=== PATIENT | female | born 1965 | race Caucasian/White ===

== ENCOUNTER → 2019-07-04 | Outpatient (CLI) | payer OTHER | END | disposition home or self-care (01) | LOC: RAD 10:18 | DX: S22.060A Wedge compression fracture of T7-T8 vertebra, initial encounter for closed fracture (principal); S32.030A Wedge compression fracture of third lumbar vertebra, initial encounter for closed fracture; X58.XXXA Exposure to other specified factors, initial encounter; Y93.89 Activity, other specified; Y92.89 Other specified places as the place of occurrence of the external cause; Y99.8 Other external cause status ==

== ENCOUNTER 2019-08-26 01:48 | Inpatient (IN) | payer OTHER ==
[2019-08-26] VITALS (8 sets, daily range): BP systolic 115–146; BP diastolic 56–98
[~2019-08-26] VITALS: Ht 167.6 cm; Wt 58.2 kg
[2019-08-26 02:16] LABS: BASO # 0.1 10*3/uL (0.0-0.1); BASO % 1.2 % (0.0-1.0); EOS # 0.4 10*3/uL (0.0-0.4); EOS % 8.8 % (1.0-4.0); HEMATOCRIT 37.2 % (37.0-47.0); HEMOGLOBIN 12.1 g/dl (12.0-16.0); LYMPH % 22.3 % (27.0-41.0); MEAN CELL VOLUME 96.4 fl (81.0-99.0); MEAN CORPUSCULAR HGB 31.3 pg (27.0-31.0); MEAN CORPUSCULAR HGB CONC 32.5 g/dl (33.0-37.0); MEAN PLATELET VOLUME 9.5 fl (9.6-12.3); MONO # 0.4 10*3/uL (0.1-1.0); MONO % 9.5 % (3.0-9.0); NEUT # 2.5 10*3/uL (2.3-7.9); PLATELET COUNT AUTOMATED 184 10*3/uL (130-400); RED BLOOD COUNT 3.86 10*6/uL (4.10-5.10); RED CELL DISTRI WIDTH 15.4 % (0-14.5); WHITE BLOOD COUNT 4.3 10*3/uL (4.8-10.8)
[2019-08-26 02:31] LABS: ALBUMIN 3.6 gm/dl (3.1-4.5); ALKALINE PHOSPHATASE 137 U/L (45-117); BUN 10 mg/dl (7-24); CHLORIDE 101 mmol/L (98-107); CREATININE 0.83 mg/dL (0.55-1.02); POTASSIUM 4.3 mmol/L (3.5-5.1); SGOT/AST 95 IU/L (3-35); SGPT/ALT 41 U/L (12-78); SODIUM 135 mmol/L (136-145); TOTAL PROTEIN 7.7 gm/dL (6.4-8.2)
[2019-08-26 02:41] LABS: ACETAMINOPHEN (TYLENOL) < 5.0 ug/ml (10-30); ETHYL ALCOHOL < 3.0 mg/dl (<3)
--- NOTE | 2019-08-26 03:15 | NUR ---
PT AMBULATORY TO BATHROOM SHE REMAINS CONFUSED AT THIS TIME SHE IS COOPERATIVE SHE REFUSES TO PUT ON A GOWN STATES SHE IS COLD WARM BLANKETS GIVEN FOR COMFORT. SHONDA ENCINAS RN.
[2019-08-26 03:19] LABS: BILIRUBIN NEGATIVE (NEGATIVE); BLOOD TRACE-INTACT (NEGATIVE); CLARITY SL CLOUDY (CLEAR); COLOR YELLOW (YELLOW); GLUCOSE NEGATIVE (NEGATIVE); KETONE 1+ (NEGATIVE); LEUKO ESTERASE NEGATIVE (NEGATIVE); NITRITE POSITIVE (NEGATIVE)
[2019-08-26 03:29] LABS: URINE AMPHETAMINES > 1000 (1000ng/ml); URINE BARBITURATES < 200 (200ng/ml); URINE BENZODIAZEPINES < 200 (200ng/ml); URINE CANNABINOIDS (THC) < 50 (50ng/ml); URINE COCAINE < 300 (300ng/ml); URINE METHADONE < 300 (300ng/ml); URINE OPIATES > 300 (300ng/ml)
[2019-08-26 03:31] LABS: URINE PHENCYCLIDINE < 25 (25ng/ml)
[2019-08-26 03:33] LABS: BACTERIA 4+
--- NOTE | 2019-08-26 04:39 | NUR ---
PT SLEEPING AROUSES EASILY . PT IS AWARE SHE IS IN THE HOSPITAL. I ASK THAT SHE BE PLACED IN A GOWN FOR ADM AND THE PATIENT REFUSES TO PUT ON A GOWN. SHONDA ENCINAS RN.
--- NOTE | 2019-08-26 09:00 | NUR ---
Time: 899 A 54 year old admitted to 5E under services of CARMELO HOFF DO. Pt. arrived via WHEELCHAIR from ER ER. Chief complaint: PT STATES "IM HERE FOR A UTI." DIAGNOSIS ENCEPHALOPATHY. SEE ADM ASSESSMENT. AARON PEACOCK SPNRCC RISHI CALDERON
--- NOTE | 2019-08-26 13:02 | NUR ---
NORCO 5/325 TAB PO FOR LOWER BACK PAIN DUE TO OSTEO. PT RATED PAIN "8/10". WILL CONTINUE TO ASSESS. AARON PEACOCK SPHUMBERTOCC
[2019-08-26] MEDS ORDERED: NORCO 5-325 TA1 EACH PO (13:09)
[2019-08-26] MEDS ORDERED: XIFAXAN550 MG PO (13:09)
[2019-08-26] MEDS ORDERED: OMEPRAZOLE20 M2 PO (13:10)
--- NOTE | 2019-08-26 14:20 | NUR ---
OFFICE STAFF WAS NOTIFIED OF BEHAVIORAL HEALTH CONSULT CONSULT. RESPONSE OF NOTIFICATION WAS WE ALREADY HAVE THE CONSULT.. MARIEL MALONEY
--- NOTE | 2019-08-26 18:04 | NUR ---
C/O PAIN TO BACK OF 04/23. NORCO GIVEN AT THIS TIME REQUESTED. WILL CONT TO MONITOR. CALL LIGHT IN REACH.
--- NOTE | 2019-08-26 22:10 | NUR ---
MEDICATED WITH NORCO FOR C/O GENERALIZED DISCOMFORT. HEP LOCK INTACT TO LEFT WRIST. PT. STATES THAT SHE IS TRYING TO CALL DIFFERENT PEOPLE ON THE PHONE TO SEE IF SOMEONE WILL LET HER LIVE WITH THEM DUE TO HER BEING HOMELESS. CALL LIGHT REMAINS WITHIN REACH. NO DISTRESS NOR HALLUCINATIONS NOTED. PT. COOPERATIVE.
--- NOTE | 2019-08-26 23:00 | NUR ---
ASSUMED CARE FOR THIS PT AT THIS TIME. PT RESTING QUIETLY IN BED. CALL LIGHT IN REACH.
[2019-08-27] VITALS: BP 125/74
--- NOTE | 2019-08-27 02:09 | NUR ---
PT MEDICATED W/NORCO FOR C/O BACK PAIN 04/23. PT RESTING QUIETLY IN BED. CALL LIGHT IN REACH.
--- NOTE | 2019-08-27 02:13 | NUR ---
PT C/O ITCHING D/T HEART MONITOR. DR. SHEFFIELD NOTIFIED. T.O. RCVD FOR BENADRYL 25MG PO X1 NOW.
--- NOTE | 2019-08-27 06:20 | NUR ---
PT MEDICATED W/NORCO FOR C/O BACK PAIN 03/23.
[2019-08-27 06:46] LABS: BASO # 0.1 10*3/uL (0.0-0.1); BASO % 1.1 % (0.0-1.0); EOS # 0.1 10*3/uL (0.0-0.4); EOS % 1.1 % (1.0-4.0); HEMATOCRIT 33.4 % (37.0-47.0); HEMOGLOBIN 10.8 g/dl (12.0-16.0); LYMPH # 1.9 10*3/uL (1.3-4.4); LYMPH % 35.6 % (27.0-41.0); MEAN CELL VOLUME 96.3 fl (81.0-99.0); MEAN CORPUSCULAR HGB 31.1 pg (27.0-31.0); MEAN CORPUSCULAR HGB CONC 32.3 g/dl (33.0-37.0); MEAN PLATELET VOLUME 9.7 fl (9.6-12.3); MONO # 0.5 10*3/uL (0.1-1.0); MONO % 8.6 % (3.0-9.0); NEUT # 2.8 10*3/uL (2.3-7.9); NEUT % 53.4 % (47.0-73.0); PLATELET COUNT AUTOMATED 166 10*3/uL (130-400); RED BLOOD COUNT 3.47 10*6/uL (4.10-5.10); RED CELL DISTRI WIDTH 15.5 % (0-14.5); WHITE BLOOD COUNT 5.3 10*3/uL (4.8-10.8)
[2019-08-27 07:21] LABS: BUN 10 mg/dl (7-24); CHLORIDE 104 mmol/L (98-107); POTASSIUM 3.7 mmol/L (3.5-5.1); SODIUM 137 mmol/L (136-145)
[2019-08-27 07:27] LABS: INTERNATIONAL NORM RATIO 1.2 (2.0-3.5)
[2019-08-27 07:32] LABS: ALKALINE PHOSPHATASE 195 U/L (45-117); CHOLESTEROL 159 mg/dL (<200); CREATININE 0.72 mg/dL (0.55-1.02); HDL CHOLESTEROL 69 mg/dl (40-60); LDL CHOLESTEROL 81 mg/dL (9-159); SGOT/AST 76 IU/L (3-35); SGPT/ALT 37 U/L (12-78); TOTAL PROTEIN 6.5 gm/dL (6.4-8.2); TRIGLYCERIDES 45 mg/dl (<150); VLDL CHOLESTEROL 9 mg/dL (6-40)
[2019-08-27 08:00] VITALS: BP 180/80
[2019-08-27 08:14] LABS: VITAMIN D, 25-HYDROXY 66.1 ng/mL (30-100)
[2019-08-27 09:46] VITALS: BP 150/90
--- NOTE | 2019-08-27 10:30 | NUR ---
Auto Wheel Alignment Specialist in to talk to patient. Patient states lives at home alone with her family checking in on her. There are 0 steps in the home. Physician: Dr. Guzman Ceron [facility] Home health services: none Patient's level of ADLs: INDEPENDENT Patient has working utilities: yes DME: none Follow-up physician's appointment after d/c: will be made by the hospitalist nurse director upon discharge Does patient want to access PORTAL?: no Discharge plan discussed with patient. She is sitting on the edge of her bed without distress noted. She lives at home alone with her family checking in on her. She is independent in her ADLs and ambulation. Discussed home health care services and BHU. She is agreeable to BHU. She denies any home needs at this time. She states she is awaiting a call from her granddaughter to see if she can stay with them. She states her [id number] should be calling about noon. She states her mother will provide transportation on discharge. Awaiting BHU vs home. JOSE J VASQUEZ
--- NOTE | 2019-08-27 10:33 | NUR ---
OFFICE STAFF WAS NOTIFIED OF DR. TAYLOR CONSULT. RESPONSE OF NOTIFICATION WAS NOTIFIED BY DARIEN HEARD. PER DARIEN HEARD. MARIEL MALONEY
--- NOTE | 2019-08-27 11:15 | NUR ---
PHYSICAL THERAPY Attempted to see pt for wander presently in with medical doctors will follow Dunia Guerra PT
--- NOTE | 2019-08-27 11:30 | NUR ---
Occupational therapy orders received and chart reviewed. Patient was with medical assistants upon arrival. Will follow up. Deborah Johansen OTR/L
--- NOTE | 2019-08-27 12:10 | NUR ---
PHYSICAL THERAPY Attempted to see pt again this PM on the phone discussing her Medicaide/Medicare status will follow Dunia Guerra PT
--- NOTE | 2019-08-27 12:15 | NUR ---
Occupational therapy orders received and chart reviewed. Patient was on the phone discussing her medicare/medicaid. Will follow up. Deborah Johansen, OTR/L
--- NOTE | 2019-08-27 14:44 | NUR ---
Museum Informatics Specialist attempted to call mother, Meredith, at [phone] with no success. Was told it was a wrong number by the lady who answered the phone. Museum Informatics Specialist in to see patient. She states she is waiting for her [id number] to call. She should be calling about [phone]. She states she called [place] Medicaid and her insurance has now been reinstated. [facility] and that is correct, patient now has [place] Medicaid. Notified Anna, order planner, in [facility] for possible admission. Patient is willing to go to [facility] if they are able to take her. Nurse notified.
--- NOTE | 2019-08-27 14:56 | NUR ---
[facility] not able to take patient due to bed availability and nurse practitioner stating patient needs a dual diagnosis facility. mud jack nozzle worker notified.
--- NOTE | 2019-08-27 15:09 | NUR ---
MRI TECHNICIAN faxed referral to [facility] for review. -JESUS CastanedaW
[2019-08-27 16:00] VITALS: BP 117/55
--- NOTE | 2019-08-27 19:00 | NUR ---
ASSUMED CARE FOR THIS PT AT THIS TIME. PT SITTING IN BED WATCHING TV. CALL LIGHT IN REACH.
[2019-08-27 20:00] VITALS: BP 109/52
--- NOTE | 2019-08-27 20:19 | NUR ---
PT MEDICATED W/NORCO FOR C/O BACK PAIN 04/23. PT SITTING IN BED WATCHING TV. CALL LIGHT IN REACH.
--- NOTE | 2019-08-27 23:03 | NUR ---
24 HR chart check completed.
[2019-08-28 00:27] VITALS: BP 100/52
--- NOTE | 2019-08-28 00:51 | NUR ---
PT MEDICATED W/NORCO FOR C/O CHRONIC BACK PAIN 04/23. PT ENCOURAGED TO SLEEP.
--- NOTE | 2019-08-28 05:21 | NUR ---
PT SLEEPING, AWOKEN FOR MEDS. PT REQUESTING PAIN MEDICATION. MEDICATED W/NORCO.
[2019-08-28 07:02] LABS: BASO % 0.8 % (0.0-1.0); EOS # 0.1 10*3/uL (0.0-0.4); HEMATOCRIT 31.4 % (37.0-47.0); HEMOGLOBIN 10.2 g/dl (12.0-16.0); LYMPH # 1.6 10*3/uL (1.3-4.4); LYMPH % 31.8 % (27.0-41.0); MEAN CELL VOLUME 96.9 fl (81.0-99.0); MEAN CORPUSCULAR HGB 31.5 pg (27.0-31.0); MEAN CORPUSCULAR HGB CONC 32.5 g/dl (33.0-37.0); MEAN PLATELET VOLUME 9.6 fl (9.6-12.3); MONO # 0.5 10*3/uL (0.1-1.0); MONO % 10.5 % (3.0-9.0); NEUT # 2.8 10*3/uL (2.3-7.9); NEUT % 55.5 % (47.0-73.0); PLATELET COUNT AUTOMATED 145 10*3/uL (130-400); RED BLOOD COUNT 3.24 10*6/uL (4.10-5.10); RED CELL DISTRI WIDTH 15.6 % (0-14.5)
[2019-08-28 07:33] LABS: CHLORIDE 103 mmol/L (98-107); POTASSIUM 3.8 mmol/L (3.5-5.1); SODIUM 137 mmol/L (136-145)
[2019-08-28 07:39] LABS: BUN 11 mg/dl (7-24); CREATININE 0.86 mg/dL (0.55-1.02)
[2019-08-28 08:00] VITALS: BP 115/54
--- NOTE | 2019-08-28 08:00 | NUR ---
Patient resting quietly with no c/o discomfort. Respirations easy and regular. Vital signs stable. No overt distress. AAKASH SOLIS
--- NOTE | 2019-08-28 08:10 | NUR ---
DANILO returned call from [facility]. They are unable to accept the patient. They do not take her insurance. -DANILO Castaneda
--- NOTE | 2019-08-28 09:25 | NUR ---
PT MEDICATED WITH PO NORCO PER PRN ORDER FOR C/O BACK PAIN. CHRONIC PAIN PER PT. RATES PAIN 04/23. WILL MONITOR EFFECTIVENESS.
--- NOTE | 2019-08-28 10:40 | NUR ---
JUNIOR TAYLOR IN TO SEE PATIENT. NEW ORDERS ENTERED PER PHYSICIAN.
[2019-08-28 12:00] VITALS: BP 101/42
--- NOTE | 2019-08-28 13:26 | NUR ---
Late Note: COOK CANDY was notified by Director of [facility] that the patient was refusing to voluntarily sign in to their unit. COOK CANDY notified RN Hospitalist Coordinator Manuela. -DANILO Castaneda
--- NOTE | 2019-08-28 13:38 | NUR ---
PT MEDICATED WITH PO NORCO PER PRN ORDER FOR C/O BACK PAIN. CHRONIC PER PT. WILL MONITOR EFFECTIVENESS.
--- NOTE | 2019-08-28 14:00 | NUR ---
CALLED REGARDING DISCHARGE PLAN. PATIENT WILL EITHER GO HOME WITH HER MOM WHEN SHE COMES IN THIS EVENING OR WILL SIGN CONSENT TO GO TO [facility].
[2019-08-28] MEDS ORDERED: LISINOPRIL10 M1 PO (14:14)
[2019-08-28] MEDS ORDERED: MIRTAZAPINE15 M2 PO (14:14)
--- NOTE | 2019-08-28 14:34 | NUR ---
DANILO received call from Director of [facility] in regards to this [facility]. PRODUCTION ADMINISTRATOR spoke with BEVERLY Nelson. Per Leslie patient is waiting to speak with her mother this evening to make a decision on sigining into [facility]. Per BEVERLY Nelson, patient will either be discharged to [facility] or discharged to home. PRODUCTION ADMINISTRATOR reached out to Director of [facility] and explained this to him. -DANILO Castaneda
--- NOTE | 2019-08-28 14:45 | NUR ---
NORCO EFFECTIVE PER PT. WILL CONTINUE TO MONITOR.
[2019-08-28 16:00] VITALS: BP 104/41
--- NOTE | 2019-08-28 17:53 | NUR ---
PT MEDICATED WITH NORCO FOR C/O BACK PAIN AT THIS TIME; WILL MONITOR FOR EFFECTIVENESS.
--- NOTE | 2019-08-28 18:41 | NUR ---
NOTIFIED REGARDING PATIENT'S MOTHER NOT COMING IN [facility]. PATIENT INFORMED REGARDING 2 OPTIONS FOR DISCHARGE. PATIENT EITHER HAS TO SIGN INTO [facility] OR BE DISCHARGED HOME. PATIENT AWARE AND IS TRYING TO FIND A RIDE.
--- NOTE | 2019-08-28 18:53 | NUR ---
PATIENT AT THIS TIME STATES THAT SHE HAS A RIDE. SHE STATED SHE HAS TO BE OUT SOON. DR. DEWEY MADE AWARE. SHE STATED THEY WOULD GET THE DISCHARGE ORDER PUT IN SOON POSSIBLE.
--- NOTE | 2019-08-28 18:54 | NUR ---
PATIENT IV SITE AND HEART MONITOR REMOVED PER PT REQUEST
--- NOTE | 2019-08-28 19:13 | NUR ---
Discharge instructions reviewed with patient/family. Patient receptive and verbalizes understanding. Follow-up care arranged. Written instructions given to patient/family. AAKASH SOLIS.
== END 2019-08-28 19:13 | disposition home or self-care (01) | DRG 52 ==
LOC: ED 01:48 → 5E 06:30 → EDHOLD 06:30 → 5E 08:22
PROVIDERS: Emergency Medicine; Internal Medicine; Student in an Organized Health Care Education/Training Program; ADMIT Emergency Medicine
DX: G93.41 Metabolic encephalopathy (principal); N39.0 Urinary tract infection, site not specified; K74.60 Unspecified cirrhosis of liver; M81.0 Age-related osteoporosis without current pathological fracture; F19.10 Other psychoactive substance abuse, uncomplicated; F15.10 Other stimulant abuse, uncomplicated; R73.9 Hyperglycemia, unspecified; E87.1 Hypo-osmolality and hyponatremia; F17.210 Nicotine dependence, cigarettes, uncomplicated; B19.20 Unspecified viral hepatitis C without hepatic coma; G89.29 Other chronic pain; M54.9 Dorsalgia, unspecified; F32.9 Major depressive disorder, single episode, unspecified; F11.99 Opioid use, unspecified with unspecified opioid-induced disorder; Y90.9 Presence of alcohol in blood, level not specified; D70.9 Neutropenia, unspecified; F10.20 Alcohol dependence, uncomplicated; R31.9 Hematuria, unspecified; Z88.0 Allergy status to penicillin; Z91.040 Latex allergy status; Z79.899 Other long term (current) drug therapy; Z95.828 Presence of other vascular implants and grafts; Z81.1 Family history of alcohol abuse and dependence; Z81.8 Family history of other mental and behavioral disorders; Z82.49 Family history of ischemic heart disease and other diseases of the circulatory system; F41.9 Anxiety disorder, unspecified

== ENCOUNTER 2019-10-29 23:27 | Emergency (ER) | payer OTHER ==
[~2019-10-29] VITALS: Wt 58.5 kg
[~2019-10-29 23:27] MED LIST: LISINOPRIL10 M1 PO; MIRTAZAPINE15 M2 PO; NORCO 5-325 TA1 EACH PO; OMEPRAZOLE20 M2 PO; XIFAXAN550 MG PO
[2019-10-30 00:41] LABS: BASO # 0.1 10*3/uL (0.0-0.1); BASO % 2.2 % (0.0-1.0); EOS # 0.1 10*3/uL (0.0-0.4); EOS % 2.4 % (1.0-4.0); HEMATOCRIT 38.8 % (37.0-47.0); HEMOGLOBIN 12.3 g/dl (12.0-16.0); LYMPH # 1.9 10*3/uL (1.3-4.4); LYMPH % 45.5 % (27.0-41.0); MEAN CELL VOLUME 101.6 fl (81.0-99.0); MEAN CORPUSCULAR HGB 32.2 pg (27.0-31.0); MEAN CORPUSCULAR HGB CONC 31.7 g/dl (33.0-37.0); MEAN PLATELET VOLUME 9.5 fl (9.6-12.3); MONO # 0.4 10*3/uL (0.1-1.0); MONO % 8.7 % (3.0-9.0); NEUT # 1.7 10*3/uL (2.3-7.9); PLATELET COUNT AUTOMATED 188 10*3/uL (130-400); RED BLOOD COUNT 3.82 10*6/uL (4.10-5.10); RED CELL DISTRI WIDTH 17.4 % (0-14.5); WHITE BLOOD COUNT 4.1 10*3/uL (4.8-10.8)
[2019-10-30 01:00] LABS: ALBUMIN 3.3 gm/dl (3.1-4.5); ALKALINE PHOSPHATASE 160 U/L (45-117); BUN 7 mg/dl (7-24); CHLORIDE 116 mmol/L (98-107); CPK 171 U/L (26-192); CREATININE 0.85 mg/dL (0.55-1.02); POTASSIUM 3.7 mmol/L (3.5-5.1); SGOT/AST 133 IU/L (3-35); SGPT/ALT 55 U/L (12-78); SODIUM 149 mmol/L (136-145); TOTAL PROTEIN 7.4 gm/dL (6.4-8.2)
[2019-10-30] MEDS ORDERED: CEPHALEXIN500 M1 PO (02:27)
== END 2019-10-30 02:49 | disposition home or self-care (01) ==
LOC: ED 23:27
PROVIDERS: Emergency Medicine
DX: S01.412A Laceration without foreign body of left cheek and temporomandibular area, initial encounter (principal); S01.112A Laceration without foreign body of left eyelid and periocular area, initial encounter; S86.912A Strain of unspecified muscle(s) and tendon(s) at lower leg level, left leg, initial encounter; S09.90XA Unspecified injury of head, initial encounter; M25.462 Effusion, left knee; Z79.899 Other long term (current) drug therapy; M19.90 Unspecified osteoarthritis, unspecified site; F17.200 Nicotine dependence, unspecified, uncomplicated; Z79.2 Long term (current) use of antibiotics; W19.XXXA Unspecified fall, initial encounter; Y93.89 Activity, other specified; Y92.89 Other specified places as the place of occurrence of the external cause; Y99.8 Other external cause status

== ENCOUNTER 2019-11-06 15:18 | Emergency (ER) | payer OTHER ==
[~2019-11-06] VITALS: Ht 167.6 cm; Wt 58.5 kg
[~2019-11-06 15:18] MED LIST changes: +CEPHALEXIN500 M1 PO
[2019-11-06 16:03] LABS: BASO # 0.1 10*3/uL (0.0-0.1); EOS # 0.3 10*3/uL (0.0-0.4); HEMATOCRIT 38.5 % (37.0-47.0); HEMOGLOBIN 12.3 g/dl (12.0-16.0); LYMPH # 1.3 10*3/uL (1.3-4.4); LYMPH % 17.7 % (27.0-41.0); MEAN CELL VOLUME 100.3 fl (81.0-99.0); MEAN CORPUSCULAR HGB CONC 31.9 g/dl (33.0-37.0); MEAN PLATELET VOLUME 9.8 fl (9.6-12.3); MONO # 0.7 10*3/uL (0.1-1.0); MONO % 9.2 % (3.0-9.0); NEUT # 4.9 10*3/uL (2.3-7.9); PLATELET COUNT AUTOMATED 159 10*3/uL (130-400); RED BLOOD COUNT 3.84 10*6/uL (4.10-5.10); WHITE BLOOD COUNT 7.2 10*3/uL (4.8-10.8)
[2019-11-06 16:15] LABS: ACT PARTIAL THROMBO TIME 26.2 SECONDS (20.0-32.1); INTERNATIONAL NORM RATIO 1.1 (2.0-3.5)
[2019-11-06 16:21] LABS: ALKALINE PHOSPHATASE 168 U/L (45-117); BUN 16 mg/dl (7-24); CHLORIDE 110 mmol/L (98-107); CREATININE 0.71 mg/dL (0.55-1.02); POTASSIUM 3.6 mmol/L (3.5-5.1); SGOT/AST 67 IU/L (3-35); SGPT/ALT 49 U/L (12-78); SODIUM 141 mmol/L (136-145); TOTAL PROTEIN 7.2 gm/dL (6.4-8.2)
== END 2019-11-06 18:27 | disposition short-term general hospital (02) ==
LOC: ED 15:18
PROVIDERS: Emergency Medicine
DX: S72.092A Other fracture of head and neck of left femur, initial encounter for closed fracture (principal); M81.0 Age-related osteoporosis without current pathological fracture; F17.200 Nicotine dependence, unspecified, uncomplicated; Z79.899 Other long term (current) drug therapy; W18.39XA Other fall on same level, initial encounter; Y93.89 Activity, other specified; Y92.89 Other specified places as the place of occurrence of the external cause; Y99.8 Other external cause status

== ENCOUNTER → 2019-12-23 | Outpatient (CLI) | payer OTHER ==
[2019-12-23 11:50] LABS: HEMATOCRIT 33.9 % (37.0-47.0); MEAN CELL VOLUME 91.1 fl (81.0-99.0); MEAN CORPUSCULAR HGB 28.5 pg (27.0-31.0); MEAN CORPUSCULAR HGB CONC 31.3 g/dl (33.0-37.0); MEAN PLATELET VOLUME 9.3 fl (9.6-12.3); RED BLOOD COUNT 3.72 10*6/uL (4.10-5.10); RED CELL DISTRI WIDTH 17.2 % (0-14.5); WHITE BLOOD COUNT 5.9 10*3/uL (4.8-10.8)
[2019-12-23 12:18] LABS: ALBUMIN 3.2 gm/dl (3.1-4.5); ALKALINE PHOSPHATASE 300 U/L (45-117); BUN 10 mg/dl (7-24); CHLORIDE 105 mmol/L (98-107); CHOLESTEROL 150 mg/dL (<200); CREATININE 0.78 mg/dL (0.55-1.02); HDL CHOLESTEROL 70 mg/dl (40-60); LDL CHOLESTEROL 71 mg/dL (9-159); POTASSIUM 3.8 mmol/L (3.5-5.1); SGOT/AST 43 IU/L (3-35); SGPT/ALT 32 U/L (12-78); SODIUM 139 mmol/L (136-145); TRIGLYCERIDES 44 mg/dl (<150); VLDL CHOLESTEROL 9 mg/dL (6-40)
[2019-12-23 13:07] LABS: VITAMIN D, 25-HYDROXY 56.5 ng/mL (30-100)
== END | disposition home or self-care (01) ==
LOC: LAB 11:06
PROVIDERS: Family Medicine
DX: R07.9 Chest pain, unspecified (principal); E78.00 Pure hypercholesterolemia, unspecified; R53.83 Other fatigue; E55.9 Vitamin D deficiency, unspecified

== ENCOUNTER 2020-02-06 14:30 | Emergency (ER) | payer OTHER ==
[~2020-02-06] VITALS: Ht 160 cm; Wt 61.2 kg
[2020-02-06 15:12] LABS: BASO # 0.1 10*3/uL (0.0-0.1); BASO % 3.5 % (0.0-1.0); EOS # 0.1 10*3/uL (0.0-0.4); EOS % 1.5 % (1.0-4.0); HEMATOCRIT 34.9 % (37.0-47.0); LYMPH # 1.3 10*3/uL (1.3-4.4); LYMPH % 37.8 % (27.0-41.0); MEAN CELL VOLUME 93.1 fl (81.0-99.0); MEAN CORPUSCULAR HGB 30.1 pg (27.0-31.0); MEAN CORPUSCULAR HGB CONC 32.4 g/dl (33.0-37.0); MEAN PLATELET VOLUME 9.6 fl (9.6-12.3); MONO # 0.4 10*3/uL (0.1-1.0); MONO % 12.9 % (3.0-9.0); NEUT # 1.5 10*3/uL (2.3-7.9); NEUT % 44.3 % (47.0-73.0); PLATELET COUNT AUTOMATED 234 10*3/uL (130-400); RED BLOOD COUNT 3.75 10*6/uL (4.10-5.10); RED CELL DISTRI WIDTH 25.6 % (0-14.5); WHITE BLOOD COUNT 3.4 10*3/uL (4.8-10.8)
[2020-02-06 15:23] LABS: ACT PARTIAL THROMBO TIME 27.3 SECONDS (20.0-32.1); INTERNATIONAL NORM RATIO 1.1 (2.0-3.5)
[2020-02-06 15:28] LABS: ALKALINE PHOSPHATASE 193 U/L (45-117); BUN 8 mg/dl (7-24); CHLORIDE 109 mmol/L (98-107); CREATININE 0.65 mg/dL (0.55-1.02); POTASSIUM 3.9 mmol/L (3.5-5.1); SGOT/AST 112 IU/L (3-35); SGPT/ALT 70 U/L (12-78); SODIUM 141 mmol/L (136-145); TOTAL PROTEIN 7.4 gm/dL (6.4-8.2)
== END 2020-02-06 16:58 | disposition home or self-care (01) ==
LOC: ED 14:30
PROVIDERS: Emergency Medicine
DX: S01.81XA Laceration without foreign body of other part of head, initial encounter (principal); F10.129 Alcohol abuse with intoxication, unspecified; M19.90 Unspecified osteoarthritis, unspecified site; F17.210 Nicotine dependence, cigarettes, uncomplicated; Z79.899 Other long term (current) drug therapy; Y90.9 Presence of alcohol in blood, level not specified; W18.39XA Other fall on same level, initial encounter; Y93.89 Activity, other specified; Y92.89 Other specified places as the place of occurrence of the external cause; Y99.8 Other external cause status

== ENCOUNTER 2020-02-08 18:44 | Emergency (ER) | payer OTHER ==
[~2020-02-08] VITALS: Ht 170.1 cm; Wt 58.5 kg
== END 2020-02-08 20:21 | disposition home or self-care (01) ==
LOC: ED 18:44
DX: S01.81XD Laceration without foreign body of other part of head, subsequent encounter (principal); Z79.899 Other long term (current) drug therapy; X58.XXXD Exposure to other specified factors, subsequent encounter

== ENCOUNTER 2020-03-30 11:25 | Emergency (ER) | payer OTHER ==
[~2020-03-30] VITALS: Wt 58.5 kg
== END 2020-03-30 15:15 | disposition short-term general hospital (02) ==
LOC: ED 11:25
DX: S42.202A Unspecified fracture of upper end of left humerus, initial encounter for closed fracture (principal); S43.005A Unspecified dislocation of left shoulder joint, initial encounter; Z79.899 Other long term (current) drug therapy; X58.XXXA Exposure to other specified factors, initial encounter; Y93.89 Activity, other specified; Y92.89 Other specified places as the place of occurrence of the external cause; Y99.8 Other external cause status

== ENCOUNTER 2020-04-05 20:47 | Emergency (ER) | payer OTHER ==
[~2020-04-05] VITALS: Ht 165.1 cm; Wt 72.6 kg
[2020-04-05 22:12] LABS: BASO # 0.1 10*3/uL (0.0-0.1); BASO % 1.8 % (0.0-1.0); EOS % 0.5 % (1.0-4.0); HEMATOCRIT 28.1 % (37.0-47.0); LYMPH # 1.2 10*3/uL (1.3-4.4); LYMPH % 27.5 % (27.0-41.0); MEAN CELL VOLUME 103.3 fl (81.0-99.0); MEAN CORPUSCULAR HGB 32.7 pg (27.0-31.0); MEAN CORPUSCULAR HGB CONC 31.7 g/dl (33.0-37.0); MEAN PLATELET VOLUME 8.9 fl (9.6-12.3); MONO # 0.5 10*3/uL (0.1-1.0); MONO % 11.6 % (3.0-9.0); NEUT # 2.6 10*3/uL (2.3-7.9); NEUT % 58.4 % (47.0-73.0); PLATELET COUNT AUTOMATED 215 10*3/uL (130-400); RED BLOOD COUNT 2.72 10*6/uL (4.10-5.10); RED CELL DISTRI WIDTH 18.4 % (0-14.5); WHITE BLOOD COUNT 4.4 10*3/uL (4.8-10.8)
[2020-04-05 22:31] LABS: ALBUMIN 2.6 gm/dl (3.1-4.5); ALKALINE PHOSPHATASE 191 U/L (45-117); BUN 9 mg/dl (7-24); CHLORIDE 110 mmol/L (98-107); CREATININE 0.97 mg/dL (0.55-1.02); POTASSIUM 3.2 mmol/L (3.5-5.1); SGOT/AST 81 IU/L (3-35); SGPT/ALT 36 U/L (12-78); SODIUM 141 mmol/L (136-145); TOTAL PROTEIN 6.4 gm/dL (6.4-8.2)
[2020-04-05 22:59] LABS: ACETAMINOPHEN (TYLENOL) < 5.0 ug/ml (10-30)
[2020-04-06] MEDS ORDERED: POLYSPORIN OINT15 GM T (08:42)
== END 2020-04-06 09:21 | disposition home or self-care (01) ==
LOC: ED 20:47
PROVIDERS: Emergency Medicine
DX: S61.412A Laceration without foreign body of left hand, initial encounter (principal); S20.212A Contusion of left front wall of thorax, initial encounter; S40.012A Contusion of left shoulder, initial encounter; F10.121 Alcohol abuse with intoxication delirium; M81.0 Age-related osteoporosis without current pathological fracture; F17.210 Nicotine dependence, cigarettes, uncomplicated; Z79.899 Other long term (current) drug therapy; W18.39XA Other fall on same level, initial encounter; Y93.89 Activity, other specified; Y92.89 Other specified places as the place of occurrence of the external cause; Y99.8 Other external cause status

== ENCOUNTER 2020-04-26 11:18 | Emergency (ER) | payer OTHER ==
[~2020-04-26] VITALS: Ht 170.1 cm; Wt 58.5 kg
[~2020-04-26 11:18] MED LIST changes: +POLYSPORIN OINT15 GM T
[2020-04-26] MEDS ORDERED: PERCOCET 10-321 EACH PO (15:11)
== END 2020-04-26 15:23 | disposition home or self-care (01) ==
LOC: ED 11:18
DX: S42.201A Unspecified fracture of upper end of right humerus, initial encounter for closed fracture (principal); F17.200 Nicotine dependence, unspecified, uncomplicated; Z79.899 Other long term (current) drug therapy; W01.0XXA Fall on same level from slipping, tripping and stumbling without subsequent striking against object, initial encounter; Y93.89 Activity, other specified; Y92.89 Other specified places as the place of occurrence of the external cause; Y99.8 Other external cause status

== ENCOUNTER 2020-05-20 08:32 | Inpatient (IN) | payer OTHER ==
[~2020-05-20] VITALS: Ht 170.1 cm; Wt 58.3 kg
[~2020-05-20 08:32] MED LIST changes: +PERCOCET 10-321 EACH PO
[2020-05-20 08:39] VITALS: BP 122/82
[2020-05-20 09:50] LABS: BASO # 0.1 10*3/uL (0.0-0.1); BASO % 1.4 % (0.0-1.0); EOS # 0.1 10*3/uL (0.0-0.4); EOS % 2.4 % (1.0-4.0); HEMATOCRIT 35.7 % (37.0-47.0); LYMPH # 2.1 10*3/uL (1.3-4.4); LYMPH % 36.9 % (27.0-41.0); MEAN CELL VOLUME 101.4 fl (81.0-99.0); MEAN CORPUSCULAR HGB 31.8 pg (27.0-31.0); MEAN CORPUSCULAR HGB CONC 31.4 g/dl (33.0-37.0); MEAN PLATELET VOLUME 9.4 fl (9.6-12.3); MONO # 0.3 10*3/uL (0.1-1.0); MONO % 4.7 % (3.0-9.0); NEUT # 3.2 10*3/uL (2.3-7.9); NEUT % 54.4 % (47.0-73.0); PLATELET COUNT AUTOMATED 233 10*3/uL (130-400); RED BLOOD COUNT 3.52 10*6/uL (4.10-5.10); RED CELL DISTRI WIDTH 20.3 % (0-14.5); WHITE BLOOD COUNT 5.8 10*3/uL (4.8-10.8)
[2020-05-20 10:01] LABS: ACT PARTIAL THROMBO TIME 29.9 SECONDS (20.0-32.1); INTERNATIONAL NORM RATIO 1.1 (2.0-3.5)
--- NOTE | 2020-05-20 10:07 | NUR ---
PT IS IN CT.
[2020-05-20 10:08] LABS: ALBUMIN 2.6 gm/dl (3.1-4.5); BUN 6 mg/dl (7-24); CHLORIDE 111 mmol/L (98-107); CREATININE 0.54 mg/dL (0.55-1.02); LIPASE 143 U/L (73-393); POTASSIUM 4.1 mmol/L (3.5-5.1); SGOT/AST 56 IU/L (3-35); SGPT/ALT 29 U/L (12-78); SODIUM 144 mmol/L (136-145)
[2020-05-20 10:10] LABS: ALKALINE PHOSPHATASE 251 U/L (45-117); TOTAL PROTEIN 6.8 gm/dL (6.4-8.2)
[2020-05-20 10:14] LABS: TROPONIN I < 0.015 ng/ml (<0.045)
[2020-05-20 10:30] LABS: BILIRUBIN Negative (Negative); BLOOD Negative (Negative); CLARITY Cloudy (Clear); COLOR Yellow (Yellow); GLUCOSE Negative (Negative); KETONE Negative (Negative); LEUKO ESTERASE 3+ (Negative); NITRITE Positive (Negative); SPECIFIC GRAVITY <= 1.005 (1.001-1.030)
[2020-05-20 10:35] LABS: RBC 0-2 rbc/hpf (0-2); WBC TNTC wbc/hpf (0-5)
[2020-05-20 10:36] LABS: BACTERIA 4+
--- NOTE | 2020-05-20 12:24 | NUR ---
PT RESTING IN BED. NO SIGNS IN BED WITHOUT SIGNS OF DISTRESS AT THIS TIME.
[2020-05-20] MEDS ORDERED: FUROSEMIDE40 MG PO (13:34)
[2020-05-20 13:44] VITALS: BP 130/84
--- NOTE | 2020-05-20 13:55 | NUR ---
A 55, admitted to , under the services of MEREDITH Marti DO with a diagnosis of UTI, ALCOHOL INTOXICATION, UNABLE TO AMBULATE. Chief complaint is SHOULDER PAIN. Patient arrived via wheel chair from ER. Monitor applied. Initial assessment completed. Vital signs taken and recorded. MEREDITH MARTI DO notified of admission to the unit. Orders received. See assessment for past medical history, medications and allergies. Patient and/or family oriented [facility] Clothing/patient valuable form completed. TRE WANG
--- NOTE | 2020-05-20 14:30 | NUR ---
SPOKE TO DR EDOUARD TO LET HIM KNOW MED LIST IS UP TO DATE. INFORMED HIM PT HAD ROCEPHIN IN THE ER, HE STATES TO NOT GIVE ANOTHER DOSE TODAY, AND TO CONTINUE IT TOMORROW
--- NOTE | 2020-05-20 14:43 | NUR ---
PRN NORCO PO GIVEN FOR COMPLAINTS OF SHOULDER PAIN RATED 10/10. WILL MONITOR FOR EFFECTIVENESS
--- NOTE | 2020-05-20 15:06 | NUR ---
PT REFUSING PICTURES OF WOUNDS AND MEASUREMENTS
--- NOTE | 2020-05-20 15:10 | NUR ---
PHYSICAL THERAPY PT renetta received pt admitted with fall R shld fx, Suspected R femur fx as well as more recent L shld fx (04/02). Pt has orthopeadic consult will follow pending further orders per Ortho MD. Dunia Guerra PT
--- NOTE | 2020-05-20 15:15 | NUR ---
NOTIFIED DR HOPE OF NEW CONSULT
--- NOTE | 2020-05-20 15:17 | NUR ---
NOTIFIED DR EDOUARD OF LACTIC ACID 2.5
--- NOTE | 2020-05-20 15:40 | NUR ---
PRN NORCO EFFECTIVE PER PT SLEEPING. WILL CONTINUE TO MONITOR
[2020-05-20 16:00] VITALS: BP 140/80
--- NOTE | 2020-05-20 17:05 | NUR ---
NOTIFIED DR EDOUARD OF LACTIC ACID 2.2
--- NOTE | 2020-05-20 19:49 | NUR ---
VIVIANE GIVEN PER ORDER FOR SHOULDER PAIN RATED "8" SEE MAR.
[2020-05-20 20:00] VITALS: BP 143/86
--- NOTE | 2020-05-20 20:45 | NUR ---
VIVIANE HELPING PAIN PER PATIENT.
--- NOTE | 2020-05-20 22:31 | NUR ---
PATIENT C/O PAIN IN SHOULDERS RATED "BEYOND 10" TO SOON FOR NORCO, MORPHINE GIVEN PER ORDER FOR PAIN. SEE MAR.
--- NOTE | 2020-05-20 23:20 | NUR ---
PER PT. MORPHINE HELPING WITH PAIN AT THIS TIME.
[2020-05-21] VITALS: BP 143/59
--- NOTE | 2020-05-21 00:19 | NUR ---
RANDYCO GIVEN PER ORDER FOR PAIN IN SHOULDER RATED "7-8". SEE MAR.
--- NOTE | 2020-05-21 01:45 | NUR ---
PATIENT SLEEPING. RESP. EASY AND REG. NO ACUTE DISTRESS NOTED. NORCO HELPING WITH PAIN AT THIS TIME.
--- NOTE | 2020-05-21 02:53 | NUR ---
AWAKEND FOR PO MED AND WENT BACK TO SLEEP.
--- NOTE | 2020-05-21 04:06 | NUR ---
AWAKEND AND UP TO BATHROOM VOIDED QS. BACK TO BED. NORCO GIVEN PER ORDER FOR PAIN IN SHOULDER RATED "9". SEE OCT.
--- NOTE | 2020-05-21 05:00 | NUR ---
VIVIANE EFFECTIVE FOR PAIN REDUCTION PER PT.
[2020-05-21 06:09] LABS: BASO # 0.1 10*3/uL (0.0-0.1); BASO % 1.7 % (0.0-1.0); EOS % 0.6 % (1.0-4.0); LYMPH # 1.5 10*3/uL (1.3-4.4); LYMPH % 29.2 % (27.0-41.0); MEAN CELL VOLUME 100.6 fl (81.0-99.0); MEAN CORPUSCULAR HGB 31.8 pg (27.0-31.0); MEAN CORPUSCULAR HGB CONC 31.6 g/dl (33.0-37.0); MEAN PLATELET VOLUME 9.5 fl (9.6-12.3); MONO # 0.4 10*3/uL (0.1-1.0); MONO % 6.9 % (3.0-9.0); NEUT # 3.2 10*3/uL (2.3-7.9); NEUT % 61.4 % (47.0-73.0); PLATELET COUNT AUTOMATED 202 10*3/uL (130-400); RED BLOOD COUNT 3.08 10*6/uL (4.10-5.10); RED CELL DISTRI WIDTH 19.9 % (0-14.5); WHITE BLOOD COUNT 5.2 10*3/uL (4.8-10.8)
[2020-05-21 06:23] LABS: ALBUMIN 2.2 gm/dl (3.1-4.5); ALKALINE PHOSPHATASE 209 U/L (45-117); BUN 9 mg/dl (7-24); CHLORIDE 111 mmol/L (98-107); CREATININE 0.49 mg/dL (0.55-1.02); POTASSIUM 3.8 mmol/L (3.5-5.1); SGOT/AST 50 IU/L (3-35); SGPT/ALT 22 U/L (12-78); SODIUM 140 mmol/L (136-145); TOTAL PROTEIN 5.7 gm/dL (6.4-8.2)
--- NOTE | 2020-05-21 06:40 | NUR ---
PER PATIENT SHE SLEPT ON HER RIGHT SHOULDER AND IT MADE IT HURT WORSE AGAIN MORPHINE GIVEN PER ORDER FOR SEVERE PAIN, PAIN RATED "10+". SEE OCT.
--- NOTE | 2020-05-21 07:47 | NUR ---
PHYSICAL THERAPY Screen and PT renetta received pt to have orthopeadic consult for R shld and possible R femur fx will follow per orthopeadic orders Dunia Guerra PT
[2020-05-21 08:00] VITALS: BP 140/54
--- NOTE | 2020-05-21 08:23 | NUR ---
PT RESTING IN BED/ NO DISTRESS NOTED. WILL MONITOR
[2020-05-21 09:00] LABS: VITAMIN D, 25-HYDROXY 53.4 ng/mL (30-100)
--- NOTE | 2020-05-21 09:25 | NUR ---
PT REQUESTED AND GIVEN NORCO FOR C/O BILATERAL SHOULDER PAIN PT RATES PAIN 8/10 WILL MONITOR
--- NOTE | 2020-05-21 09:51 | NUR ---
PT STATES THAT RANDYCO HELPED A LITTLE. WILL MONITOR
--- NOTE | 2020-05-21 11:27 | NUR ---
PT REQUESTED AND GIVEN MORPHINE FOR C/O BILATERAL SHLDR PAIN PT RATES PAIN 8/10 WILL MONITOR
[2020-05-21 12:00] VITALS: BP 143/59
--- NOTE | 2020-05-21 12:15 | NUR ---
PT RESTING IN BED. EYES CLOSED. MORPHINE APPEARS EFFECTIVE. WILL MONITOR
--- NOTE | 2020-05-21 12:28 | NUR ---
Ceramics Machine Operator in to talk to patient. Patient states lives at HOME with ALONE. There are NO steps in the home. Physician: PAMELA Pharmacy: [facility] Home health services: NONE Patient's level of ADLs: INDEPENDENT Patient has working utilities: YES DME: STATES SHE HAS A WALKER AT HOME IF SHE NEEDS IT Follow-up physician's appointment after d/c: WILL BE MADE BY HOSPITALIST NURSE DIRECTOR ON DISCHARGE. Does patient want to access PORTAL?: NO Discharge plan PT LIVES AT HOME ALONE AND IS INDEPENDENT IN HER CARE. TALKED TO PT ABOUT POSSIBLY NEEDING A SNF ON DISCHAGE BUT STATES SHE DOES NOT WANT TO GO. STATES SHE LIVES IN A ONE STORY APARTMENT, SHE HAS FRIENDS WHO LIVE ON BOTH SIDES OF HER. AND OTHER FRIENDS WHO CHECK ON HER DAILY. STATES HER APARTMENT IS HANDICAP ACCESSABLE AND SHE WANTS TO GO HOME. EXPLAINED WE WILL WAIT UNTIL PT SEES HER AND HOW SHE DOES WITH THEM AND FOR ORTHOPEDIC DOCTOR TO SEE. STATES SHE HAS A WALKER AT HOME IF SHE NEEDS IT. WILL CONTINUE TO FOLLOW. STATES SHE WILL HAVE A RIDE HOME.. CLINTON MILLER
--- NOTE | 2020-05-21 13:25 | NUR ---
Nursing screen and Occupational Therapy referral received. Awaiting orthopedic consult for right humeral fracture and suspected right femur fracture. Kezia Gaitan OTR/l
--- NOTE | 2020-05-21 13:41 | NUR ---
PHYSICAL THERAPY Awaiting orthopedic consult for right humeral fracture and suspected right femur fracture prior to assessing pt. Dunia Guerra PT
--- NOTE | 2020-05-21 14:26 | NUR ---
PT REQUESTED AND GIVEN NORCO FOR C.O BILATERAL SHLDR PAIN PT RATES PAIN /
--- NOTE | 2020-05-21 14:30 | NUR ---
PHYSICAL THERAPY Physical Therapy evaluation completed on with full evaluation to follow. Recommend physical therapy per plan of care and SNF upon discharge pt is NWB of RUE w sling and very unsteady with poor safety awareness with attempts for trial of AD (SBQC) see full eval. Discussed rehab pt states she will go home. Recomend 24 hr care/assist for activities/ambulation, pt is a high fall risk with full HH services Thank you for this referral. Dunia Guerra PT
[2020-05-21 14:41] LABS: ACT PARTIAL THROMBO TIME 31.1 SECONDS (20.0-32.1); INTERNATIONAL NORM RATIO 1.2 (2.0-3.5)
--- NOTE | 2020-05-21 14:45 | NUR ---
Occupational Therapy evaluation completed on 5 with full eval to follow. Precautions include high fall risk d/t poor balance, poor safety and impaired insight, NWB RUE, moderate complexity level 41999. Recommend OT per PCO and SNF. Patient refuses SNF. OT recommends home with HH SN,OT,PT and 24 hr supervision and assist as patient is a high fall risk. Thank you. Kezia Gaitan OTR/sina
--- NOTE | 2020-05-21 15:00 | NUR ---
PT RESTING IN BED. EYES CLOSED. NORCO APPEARS EFECTIVE. WILL MONITOR
[2020-05-21] MEDS ORDERED: KRISTALOSE20 GM PO (15:31)
[2020-05-21 16:00] VITALS: BP 144/88
--- NOTE | 2020-05-21 16:00 | NUR ---
PT REQUESTING PAIN MEDICATION . PT CAN NOT KEEP HER EYES OPEN. WILL MONITOR
--- NOTE | 2020-05-21 18:13 | NUR ---
PT REQUESTED AND GIVEN MORPHINE FOR C/O BILATERAL SHLDR PAIN PT RATES PAIN 9/10 WILL MONITOR
--- NOTE | 2020-05-21 19:06 | NUR ---
PT RESTING IN BED, EYES CLOSED. MORPHINE APPEARS EFFECTIVE. WILL MONITOR
--- NOTE | 2020-05-21 19:49 | NUR ---
NORCO GIVEN PER ORDER FOR RIGHT SHOULDER PAIN RATED "6-7" SEE MAR. PATIENT WANTS SOMETHING TO HELP HER SLEEP TONIGHT.
[2020-05-21 20:00] VITALS: BP 153/55
--- NOTE | 2020-05-21 20:45 | NUR ---
VIVIANE EFFECTIVE FOR PAIN REDUCTION PER PT.
--- NOTE | 2020-05-21 21:42 | NUR ---
PATIENT C/O ITCHING AND WANTED SOMETHING TO HELP HER GO TO SLEEP. VISTARIL AND RESTORIL GIVEN PER ORDER FOR ITCHING AND HELP SLEEP.
--- NOTE | 2020-05-21 21:43 | NUR ---
PATIENT C/O MUSCLE ACHING ROBAXIN GIVEN PER ORDER.
--- NOTE | 2020-05-21 22:40 | NUR ---
VISTARIL EFFECTIVE FOR ITCHING AND HELPING PATIENT CALM, TO HELP HER SLEEP. RESTORIL HELPING PATIENT MORE DROWSY ROBAXIN EFFECTIVE FOR MUSCLE ACHES.
--- NOTE | 2020-05-21 22:45 | NUR ---
MORPHINE GIVEN PER ORDER FOR PAIN RATED "8" RIGHT SHOULDER. SEE MAR.
--- NOTE | 2020-05-21 23:45 | NUR ---
MORPHINE EFFECTIVE FOR PAIN PER PT.
[2020-05-22] VITALS (9 sets, daily range): BP systolic 145–192; BP diastolic 70–94
--- NOTE | 2020-05-22 03:40 | NUR ---
24 HR chart check completed.
--- NOTE | 2020-05-22 06:06 | NUR ---
MORPHINE GIVEN FOR SHOULDER PAIN RATED "9-10" PATIENT NPO FOR SURGERY. SEE OCT.
[2020-05-22 06:43] LABS: ACT PARTIAL THROMBO TIME 31.1 SECONDS (20.0-32.1); INTERNATIONAL NORM RATIO 1.2 (2.0-3.5)
[2020-05-22 06:45] LABS: BASO # 0.1 10*3/uL (0.0-0.1); BASO % 1.3 % (0.0-1.0); EOS # 0.1 10*3/uL (0.0-0.4); EOS % 1.9 % (1.0-4.0); HEMATOCRIT 32.9 % (37.0-47.0); LYMPH # 1.5 10*3/uL (1.3-4.4); MEAN CELL VOLUME 99.4 fl (81.0-99.0); MEAN CORPUSCULAR HGB 31.4 pg (27.0-31.0); MEAN CORPUSCULAR HGB CONC 31.6 g/dl (33.0-37.0); MEAN PLATELET VOLUME 9.6 fl (9.6-12.3); MONO # 0.4 10*3/uL (0.1-1.0); MONO % 7.5 % (3.0-9.0); NEUT # 2.7 10*3/uL (2.3-7.9); NEUT % 58.3 % (47.0-73.0); PLATELET COUNT AUTOMATED 204 10*3/uL (130-400); RED BLOOD COUNT 3.31 10*6/uL (4.10-5.10); RED CELL DISTRI WIDTH 18.9 % (0-14.5); WHITE BLOOD COUNT 4.7 10*3/uL (4.8-10.8)
[2020-05-22 06:47] LABS: BUN 6 mg/dl (7-24); CHLORIDE 106 mmol/L (98-107); CREATININE 0.45 mg/dL (0.55-1.02); POTASSIUM 3.9 mmol/L (3.5-5.1); SODIUM 139 mmol/L (136-145)
--- NOTE | 2020-05-22 07:01 | NUR ---
MORPHINE EFFECTIVE FOR PAIN PER PT.
--- NOTE | 2020-05-22 08:12 | NUR ---
NOTIFIED ANGELIC MCKAY OF PT'S BP.
--- NOTE | 2020-05-22 08:27 | NUR ---
MORPHINE GIVEN FOR C/O GENERALIZED PAIN. RATES 10/10 ON PAIN SCALE. WILL MONITOR.
--- NOTE | 2020-05-22 09:30 | NUR ---
MORPHINE EFFECTIVE PER PT.
--- NOTE | 2020-05-22 09:55 | NUR ---
OT NOTE Pt was seen this A.M. 1:1 for 15 minute OT session. Upon arrival pt was side lying on her R side. Pt identified by name and and had complaints of 10/10 B shoulder pain. Pt was educated on NWB to RUE as well as sling use and pt refused to wear the sling. Pt transferred supine to sit EOB with SBA. Sit to stand completed from bed level with CGA while maintaining NWB to RUE. Functional mobility completed from the EOB to the bathroom with CGA. There she transferred on to standard commode with Elmer and off with modA due to grab bar being on her R side and being NWB. Clothing management completed with modA. Pt then stood sink side while washing her hands with CGA for safety. Functional mobility was then completed back to the EOB where she transferred sit to supine with SBA. There she was left with call light in hand, tray table in place, and bed alarm activated for safety. Continue with rec D/C plan to SNF. SABRINA Arevalo/Candy
--- NOTE | 2020-05-22 10:00 | NUR ---
PHYSICAL THERAPY Patient seen this am 1:1 for therapy visit and was resting supine in bed upon therapist arrival. Patient identified by name / and was joined by OT physician assistant for observation this session. Patient reports 10 B shoulder pain and is NWB on R UE. Patient declined use of shoulder sling, giving no specific reason, and transfers supine to sit EOB with SBA. Patient completed sit to stand transfer, CGA, while ambulating 20'x 2 to bathroom, no AD, CGA, demonstrating very slow, cautious gait pattern. Patient returned to EOB sit with increased fatigue, then transfered back to supine in bed and remained with call light, tray table, telephone, bed alarm for safety. Will continue per POC as tolerated, total treatment time 16 minutes. Leobardo Ching, AIR CARRIER INSPECTOR
--- NOTE | 2020-05-22 12:50 | NUR ---
PHYSICAL THERAPY Patient seen this pm for second therapy visit and was resting supine in bed upon therapist arrival. Patient identified by name / and joined by OT assistant reading teacher for observation only this session. Patient still reporting 10/10 B shoulder pain and states she is awaiting transfer for Surgery this afternoon, while requesting several times that her mouth is dry, wanting a sip of water. Patient educated that she is NPO which means she is not allowed to have any fluids at this time. Patient remaines NWB on R UE while tranfering supine to sit EOB with CGA x 1, tolerating static EOB sit x several minutes to collect herself. Patient performed several sit to stand transfers, SBA, demonstrating initial unsteadiness, CGA, no AD. Patient tolerated 1-2 minutes static stand prior to c/o of severe shoulder pain. Patient declined gait request due pain c/o and transfered back to supine in bed, needing therapist assist for HOB positioning. Patient remained in bed with call light, telephone and bed alarm activated for safety. Will conitnue per POC as tolerated, total treatment time 13 minutes. Leobardo Ching, AUTO PARTS PROFESSIONAL
--- NOTE | 2020-05-22 12:57 | NUR ---
OT NOTE Pt was seen this P.M. 1:1 for 15 minute OT session. Upon arrival pt was supine in bed. Pt identified by name and and had complaints of 10/10 B shoulder pain. Pt was educated on NWB to RUE and sling use which pt continued to refuse. Pt transferred supine to sit EOB with SBA. Pt completed multiple sit to stand transfers from bed level with CGA for safety. Challenged pt's static standing tolerance needed for increased I in self care tasks and functional transfers, pt was able to tolerate aprox 60 seconds at a time before sitting due to fatigue and pain. Pt declined all other tasks presented at this time due to pain. Pt transferred sit to supine with SBA. There she was left with call light in hand, tray table in place, and bed alarm activated for safety. Continue with rec D/C plan to SNF. SABRINA Arevalo/Candy
--- NOTE | 2020-05-22 16:45 | NUR ---
PT STILL IN SURGERY.
--- NOTE | 2020-05-22 20:57 | NUR ---
BACK TO ROOM FOLLOWING SURGERY TO RT SHOULDER. VSS. NO VOICED COMPLAINTS AT THIS TIME. GROGY BUT ANSWERING APPROPRIATELY. CALL LIGHT IN REACH. BED ALARM ON.
[2020-05-22 21:14] LABS: HEMATOCRIT 30.1 % (37.0-47.0)
--- NOTE | 2020-05-22 21:54 | NUR ---
MORPHINE GIVEN FOR COMPLAINTS OF POST-OP RT SHOULDER PAIN 10/10 AND CRYING. CALL LIGHT IN REACH. WILL MONITOR. BED ALARM ON.
--- NOTE | 2020-05-22 22:42 | NUR ---
SLEEPING. RESPERATIONS EASY AND REGULAR. NSR 90s PER CM. MORPHINE SEEMS EFFECTIVE FOR EARLIER COMPLAINTS OF RT SHOULDER PAIN. CALL LIGHT IN REACH. BED ALARM ON.
[2020-05-23] VITALS: BP 149/89
--- NOTE | 2020-05-23 03:28 | NUR ---
24HR CHART CHECK COMPLETED
--- NOTE | 2020-05-23 03:41 | NUR ---
MORPHINE GIVEN FOR RT SHOULDER PAIN RATED 10/10 AND CRYING. CALL LIGHT IN REACH. WILL MONITOR. ASSISTED ONTO BED PAIN AT THIS TIME.
--- NOTE | 2020-05-23 04:50 | NUR ---
SLEEPING. MORPHINE EFFECTIVE. NO SXS OF DISTRESS OR FURTHER PAIN. RESPERATIONS EASY AND REGULAR ON 3L NC. CALL LIGHT IN REACH. BED ALARM ON.
--- NOTE | 2020-05-23 05:47 | NUR ---
VISTARIL AND NORCO GIVEN FOR PAIN AND ANXIETY. WILL MONITOR. CALL LIGHT IN REACH.
[2020-05-23 06:19] LABS: BASO % 0.6 % (0.0-1.0); HEMATOCRIT 26.7 % (37.0-47.0); LYMPH # 1.4 10*3/uL (1.3-4.4); LYMPH % 21.9 % (27.0-41.0); MEAN CELL VOLUME 101.5 fl (81.0-99.0); MEAN CORPUSCULAR HGB 31.6 pg (27.0-31.0); MEAN CORPUSCULAR HGB CONC 31.1 g/dl (33.0-37.0); MEAN PLATELET VOLUME 9.2 fl (9.6-12.3); MONO # 0.6 10*3/uL (0.1-1.0); MONO % 8.5 % (3.0-9.0); NEUT # 4.5 10*3/uL (2.3-7.9); NEUT % 68.7 % (47.0-73.0); PLATELET COUNT AUTOMATED 194 10*3/uL (130-400); RED BLOOD COUNT 2.63 10*6/uL (4.10-5.10); WHITE BLOOD COUNT 6.6 10*3/uL (4.8-10.8)
--- NOTE | 2020-05-23 06:32 | NUR ---
PER PT, NORCO AND VISTARIL WERE EFFECTIVE. PAIN IS BETTER AND ANXIETY HAS LESSENED.
--- NOTE | 2020-05-23 07:48 | NUR ---
PT INSTRUCTED TO USE INCENTIVE SPIROMETER Q1 WHILE AWAKE. PT REACHED 1000.
--- NOTE | 2020-05-23 09:45 | NUR ---
PHYSICAL THERAPY PATIENT SEEN TODAY POST SURGICAL REPAIR FOR R SHOULDER AND FOUND TO BE ALERT AND ORIENTED AND LAYING IN BED WITH SLING REMOVED FROM RUE. EDUCATED ON IMPORTANCE OF SLING AND NWB ON THE RUE AND WAS PLACED BACK INTO THE SHOULDER SLING; SHE WAS ABLE TO COMPLETE BED MOBILITY FROM SUP TO SIT WITH MOD OF 1 AND THEN SPT FROM BED TO CHAIR WITH MIN/MOD OF 1. AFTER GETTING UP INTO CHAIR SHE COMPLAINED OF NOT FEELING WELL AND WANTING TO LAY BACK DOWN SO SHE WAS RETURNED TO BED WITH MIN/MOD OF 1 AND POSITIONED IN THE BED FOR COMFORT OF THE RUE. UPON COMPLETION OF SESSION WAS SUPINE IN BED WITH BED ALARM AND CALL LIGHT IN REACH. BASED ON ASSESSMENT TODAY COMPLETED BY THIS PT THERE IS NO SIGNIFIGANT CHANGE INDICATING NEW EVALUATION. D/C RECOMMENDATIONS AT THIS TIME REMAIN FOR SNF ON D/C. THANKS HECTOR MILLER PT
[2020-05-23 12:00] VITALS: BP 162/81
[2020-05-23 16:00] VITALS: BP 124/66
--- NOTE | 2020-05-23 16:44 | NUR ---
SPOKE WITH DR. WEEKS REGARDING PT'S IV SITE.
--- NOTE | 2020-05-23 17:43 | NUR ---
NORCO GIVEN FOR C/O RT SHOULDER PAIN. RATES 6 OUT OF 10 ON PAIN SCALE. WILL MONITOR
[2020-05-23 20:00] VITALS: BP 142/69
--- NOTE | 2020-05-23 20:14 | NUR ---
PT C/O BILATERAL SHOULDER PAIN. NEW IV STARTED IN RT 1ST FINGER. IVF CONNECTED. MEDICATED W/MORPHINE 4MG IVP. REPOSITIONED FOR COMFORT. LIPS DRY/CRACKED, LIP MOISTURIZER GIVEN TO PT. ICE FOR SHOULDERS OFFERED AND REFUSED. PT DRANK 120CC WATER. WILL MONITOR FOR EFFECTIVENESS OF PAIN MED.
--- NOTE | 2020-05-23 21:10 | NUR ---
PT RESTING QUIETLY IN BED. NO S/S OF DISTRESS NOTED. BED ALARM ON W/CALL LIGHT IN REACH.
--- NOTE | 2020-05-23 22:52 | NUR ---
PT C/O PAIN IN BILATERAL SHOULDERS AND STOMACH CRAMPS AND NAUSEA. MEDICATED W/NORCO PO, ZOFRAN IVP, AND BENTYL PO. WILL MONITOR.
[2020-05-24] VITALS (12 sets, daily range): BP systolic 96–126; BP diastolic 46–74
--- NOTE | 2020-05-24 00:36 | NUR ---
PT C/O H/A AND INSOMNIA. MEDICATED W/MOTRIN AND TRAZADONE AT THIS TIME. PT LOOKING FOR CANDY THAT SHE STATES SHE HAD BROUGHT IN. BAG OF PERSONAL BELONGINGS CHECKED. NO CANDY FOUND. CIGARETTES AND MEDICATIONS FOUND. MEDICATION COUNTED AND SENT TO PHARMACY. 2 PACKS OF CIGARETTES LOCKED IN [place]. CALL LIGHT IN REACH.
--- NOTE | 2020-05-24 01:36 | NUR ---
PT REMAINS AWAKE BUT STATES HER H/A IS GONE. PT IN BED WATCHING TV. BED ALARM ON W/CALL LIGHT IN REACH.
--- NOTE | 2020-05-24 04:50 | NUR ---
PT SPILLED WATER IN BED AND PULLED IV OUT. NEW IV PLACED IN RT HAND. PT BATHED AT THIS TIME. C/O RT SHOULDER PAIN. MEDICATED W/MORPHINE 4MG IVP. PT C/O BEING HUNGRY. SNACKS OFFERED AND PT ACCEPTED ICECREAM. BED ALARM ON W/CALL LIGHT IN REACH.
--- NOTE | 2020-05-24 05:50 | NUR ---
PT STATES MORPHINE DOESN'T LAST LONG TO TAKE THE PAIN AWAY AND REQUESTING SOMETHING ELSE FOR PAIN RELIEF. WILL LOOK AT [facility] TO SEE WHAT IS AVAILABLE.
--- NOTE | 2020-05-24 06:40 | NUR ---
PT C/O RT SHOULDER PAIN "ALMOST A 10/10" MEDICATED W/PO NORCO PER PT REQUEST. PT STATES THEY LAST LONGER FOR PAIN RELIEF THAN MORPHINE. BED ALARM ON W/CALL LIGHT IN REACH.
[2020-05-24 08:40] LABS: HEMATOCRIT 21.1 % (37.0-47.0); MEAN CELL VOLUME 103.4 fl (81.0-99.0); MEAN CORPUSCULAR HGB 32.4 pg (27.0-31.0); MEAN CORPUSCULAR HGB CONC 31.3 g/dl (33.0-37.0); MEAN PLATELET VOLUME 9.3 fl (9.6-12.3); PLATELET COUNT AUTOMATED 142 10*3/uL (130-400); RED BLOOD COUNT 2.04 10*6/uL (4.10-5.10); RED CELL DISTRI WIDTH 19.6 % (0-14.5); WHITE BLOOD COUNT 5.5 10*3/uL (4.8-10.8)
[2020-05-24 08:50] LABS: BUN 6 mg/dl (7-24); CHLORIDE 109 mmol/L (98-107); CREATININE 0.48 mg/dL (0.55-1.02); POTASSIUM 3.3 mmol/L (3.5-5.1); SODIUM 141 mmol/L (136-145)
[2020-05-24 09:01] LABS: BASOPHILS 2 % (0-1); BURR CELLS FEW; PLATELET SUFFICIENCY NORMAL (NORMAL); POLYCHROMASIA SLIGHT; SCHISTOCYTES FEW; TOTAL CELLS COUNTED 100 #CELLS
[2020-05-24 09:02] LABS: OVALOCYTES FEW
--- NOTE | 2020-05-24 09:40 | NUR ---
ANGELIC MCKAY NOTIFIED OF PATIENT'S HEMOGLOBIN AND HEMATOCRIT LABS.
--- NOTE | 2020-05-24 09:45 | NUR ---
PT MEDICATED WITH PRN MORPHINE FOR C/O RIGHT SHOULDER PAIN. PT RATES PAIN 9/10. WILL MONITOR.
--- NOTE | 2020-05-24 10:15 | NUR ---
PRN MORPHINE EFFECTIVE PER PT
--- NOTE | 2020-05-24 12:30 | NUR ---
ONE UNIT OF PACKED RBCS INFUSING PER ORDER.
--- NOTE | 2020-05-24 13:15 | NUR ---
VSS. NO S/S OF INFUSION REACTION.
--- NOTE | 2020-05-24 14:33 | NUR ---
PT MEDICATED WITH PRN NORCO FOR C/O RIGHT SHOULDER PAIN. VSS. PT RATES PAIN 01/21. WILL MONITOR.
--- NOTE | 2020-05-24 15:00 | NUR ---
VSS. WILL CONTINUE TO MONITOR.
--- NOTE | 2020-05-24 15:20 | NUR ---
PRN NORCO EFFECTIVE PER PT
--- NOTE | 2020-05-24 15:41 | NUR ---
PACKED RBCS COMPLETE. VSS. WILL CONTINUE TO MONITOR.
--- NOTE | 2020-05-24 16:17 | NUR ---
PT MEDICATED WITH PRN ATIVAN FOR INCREASED ANXIETY AT THIS TIME. PT CONFUSED AND CONTINUALLY SETTING OF BED ALARM AND IN DIORIENTED. WILL MONITOR.
--- NOTE | 2020-05-24 16:33 | NUR ---
Pt cleared for rx by RN. Pt states she is sore all over. Pt agrees to therapy. Supine to sit with Elmer due to weakness. Sling on R SH applied while performing seated ther ex. including AP, LAQ, march, hip iso add all 20 x each. to improve function. Pt returned to supine with all needs met, bed alarm on, and nurse aide present. Billy Rivera, EXTRACTOR OPERATOR
--- NOTE | 2020-05-24 16:39 | NUR ---
PRN ATIVAN EFFECTIVE. PT RESTING IN BED WITH NO S/S OF ANXIETY.
[2020-05-24 17:25] LABS: HEMATOCRIT 25.6 % (37.0-47.0)
--- NOTE | 2020-05-24 19:00 | NUR ---
PT RESTING QUIETLY IN BED AT THIS TIME. NO S/S OF DISTRESS NOTED.
[2020-05-25] VITALS: BP 130/68
--- NOTE | 2020-05-25 00:47 | NUR ---
PT SLEEPING IN BED W/EYES CLOSED. NO S/S OF DISTRESS NOTED. BED ALARM ON W/CALL LIGHT IN REACH.
--- NOTE | 2020-05-25 05:40 | NUR ---
PT RESTING QUIETLY IN BED. ENTERED ROOM TO ADMINISTER PO PROTONIX. PT REQUESTING NORCO FOR PAIN. PT STATES SHE HAS PAIN IN HER RT SHOULDER 05/23. MEDICATED W/NORCO PO. PT REPOSITIONED FOR COMFORT. FLUIDS OFFERED AND ACCEPTED. PT ASKS WHAT'S FOR DINNER. REORIENTED TO TIME. BED ALARM ON W/CALL LIGHT IN REACH. PT CONTINUES TO REFUSE RT ARM SLING.
[2020-05-25 07:23] LABS: BASO % 0.5 % (0.0-1.0); EOS % 0.2 % (1.0-4.0); HEMATOCRIT 24.5 % (37.0-47.0); LYMPH # 1.2 10*3/uL (1.3-4.4); LYMPH % 22.4 % (27.0-41.0); MEAN CORPUSCULAR HGB 29.9 pg (27.0-31.0); MEAN CORPUSCULAR HGB CONC 32.2 g/dl (33.0-37.0); MEAN PLATELET VOLUME 8.9 fl (9.6-12.3); MONO # 0.5 10*3/uL (0.1-1.0); MONO % 8.2 % (3.0-9.0); NEUT # 3.8 10*3/uL (2.3-7.9); NEUT % 68.5 % (47.0-73.0); PLATELET COUNT AUTOMATED 152 10*3/uL (130-400); RED BLOOD COUNT 2.64 10*6/uL (4.10-5.10); RED CELL DISTRI WIDTH 27.5 % (0-14.5); WHITE BLOOD COUNT 5.5 10*3/uL (4.8-10.8)
[2020-05-25 07:27] LABS: MEAN CELL VOLUME 92.8 fl (81.0-99.0)
[2020-05-25 08:00] VITALS: BP 120/58
--- NOTE | 2020-05-25 08:00 | NUR ---
RESTING IN BED. CO RIGHT SHOULDER PAIN. VOICES NO OTHER CONCERNS. ASSESSMENT COMPLETE. RESPS EASY AND REGULAR. CALL LIGHT IN REACH.
--- NOTE | 2020-05-25 08:35 | NUR ---
PHYSICAL THERAPY Spoke with Dr. Green in [facility] discussed ROM for RUE. Per verbal conversation no activity at R shld/wearing sling/NWB. Allowed PROM for elbow flexion/extension and AROM for elbow forearm sup/pronation and AROM at wrist/hand. Discussed with OT and SABRINA Guerra PT
--- NOTE | 2020-05-25 08:49 | NUR ---
PT AND OT IN TO WORK WITH PATIENT.
--- NOTE | 2020-05-25 09:00 | NUR ---
PHYSICAL THERAPY Patient seen this am 1:1 for therapy visit and was supine in bed upon therapist arrival. Patient identified by name / and was joined by OT field technical assistant for observation this session. Patient reports mild 4/10 R shoulder pain since receiving pain meds about an hour ago as she stated and educated on NWB status R UE, including use of R shoulder sling for support / comfort. Patient transfers supine to sit EOB with MIN A, then sit to stand CGA x 1, while ambulating 20'x 2 to bathroom, no AD, CGA, demonstrating slow, cautious yakov and decreased stride. Patient returned to bedside chair with mild increased fatigue and remained with call light, tray table, telephone, body alarm for safety. Will continue per POC as tolerated, total treatment time 16 minutes. Leobardo Ching, CHIEF SERVICE OBSERVER
--- NOTE | 2020-05-25 09:00 | NUR ---
OT NOTE Prior to start of session spoke with supervising OTR who reported that per Dr. Carnes pt is NWB to her RUE, sling to be worn on RUE, No A/PROM to shoulder, PROM to elbow, and AROM to forearm/wrist/hand. Pt was seen this A.M. 1:1 for 30 minute OT session. Upon arrival pt was supine in bed with no sling in place. Pt identified by name and . Pt was unable to recall weight bearing status of RUE. Pt educated on NWB to RUE and importance of sling use. Completed PROM to R elbow flexion/extension for 2 X 10. AROM to R forearm supination/pronation, R wrist flexion/extension and ulnar/radial deviation. R hand pumps and finger opposition for 2 X 10. Pt had no complaints of pain throughout. Sling was donned and adjusted to proper fit. Pt transferred supine to sit EOB with Elmer for assist with upper body and moving her hips to the EOB. Sit to stand completed from bed level with CGA followed by functional mobility to the bathroom with CGA hand held (left). There she transferred on to the standard commode with CGA and off with Elmer due to low surface and use of grab bar on her left side. Toilet hygiene completed with CGA while seated. Functional mobility completed back to the recliner with CGA hand held (left) where she was left with call light in hand, tray table in place, and body alarm activated for safety. Continue with rec D/C plan to SNF. AMANDO Arevalo
--- NOTE | 2020-05-25 09:20 | NUR ---
Per physicial therapist; Dunia Guerra, who spoke with Dr Green about patient's right shoulder. Patient is NWB RUE in sling with NO A/PROM shoulder, PROM elbow, AROM forearm,wrist, hand. Discussed with BENNETT. Thank you. Renetta Gaitan OTR/Candy
--- NOTE | 2020-05-25 09:57 | NUR ---
MEDICATED WITH PRN NORCO FOR CO RIGHT SHOULDER PAIN RATED A 9/10. WILL ASSESS EFFECTIVENESS. CALL LIGHT IN REACH.
--- NOTE | 2020-05-25 10:57 | NUR ---
PATIENT STATES VIVIANE HELPED.
[2020-05-25 11:57] LABS: HEMATOCRIT 27.1 % (37.0-47.0)
[2020-05-25 12:00] VITALS: BP 104/63
[2020-05-25] MEDS ORDERED: LISINOPRIL10 M1 PO (12:28)
[2020-05-25] MEDS ORDERED: ROXICODONE5 MG PO ×2 (12:28→12:30)
[2020-05-25] MEDS ORDERED: RECLAST5 MG/100 M IV (12:33)
[2020-05-25] MEDS ORDERED: NATURE'S BLEND F1 MG PO (12:36)
[2020-05-25] MEDS ORDERED: OMNICEF300 MG PO (12:36)
[2020-05-25] MEDS ORDERED: VITAMIN B-1100 M1 PO (12:36)
[2020-05-25] MEDS ORDERED: VITAMIN D250 MCG PO (12:39)
[2020-05-25] MEDS ORDERED: Oscal,Oyster S500 MG PO (12:39)
--- NOTE | 2020-05-25 12:51 | NUR ---
REFERRAL SENT TO [facility]. WILL CONTINUE TO FOLLOW.
--- NOTE | 2020-05-25 13:22 | NUR ---
PATIENT SAID HER IV WAS BURNING HER EARLIER AND WANTED IT CHANGED. IV REMOVED AND RESTARTED IN THE LEFT WRIST AND THIS IV HAS INFILTRATED. PATIENT HAS A PREVIOUS IV THAT INFILTRATED. NOT ABLE TO GET ANOTHER SITE AT THIS TIME. THIS RN AND ANOTHER RN ATTEMPTED ANOTHER SITE. NOTIFIED NO IV ACCESS.
--- NOTE | 2020-05-25 13:41 | NUR ---
CALLED AND SPOKE WITH PRANAV AT [facility] TO GET PRE AUTHORAZATION FOR RECLAST. PER PRANAV NO PREAUTHORAZATION REQUIRED. CALL NUMBER REFERENCE IS [phone]. SET PT UP TO WITH CENTRAL SCHEDULING TO COME BACK ON SUNDAY 05/27 AT 0830 AFMILIA SANTIAGO RN ON NOTIFIED. INFORMATION AND SCRIP FAXED TO CENTRAL SCHEDULING, PHARMACY AND REGISTRATION,
--- NOTE | 2020-05-25 15:44 | NUR ---
EXPLAINED TO SHE NEEDS TO FOLLOW UP WITH IN TWO WEEKS. STAPLE REMOVAL WILL BE 06/05. EXPLAINED IMPORTANCE OF USING THE SLING. WENT OVER OUPT APPT MONDAY AT 0830 AM AND PATIENT TO GO TO SURGERY.
--- NOTE | 2020-05-25 15:44 | NUR ---
EXPLAINED TO PATIET NW TO KARL. NO ACTIVE RIGHT SHOULDER MOTION. KEEP HAND > ELBOW. WINGLE FINGERS AND MOVE WRIST MUCH POSSIBLE.
--- NOTE | 2020-05-25 15:45 | NUR ---
Discharge instructions reviewed with patient/family. Patient receptive and verbalizes understanding. Follow-up care arranged. Written instructions given to patient/family. DISCHARGE WOUND PHOTOS TAKEN. IV REMOVED AND MONITOR TAKEN OFF. SHIREEN COBOS
--- NOTE | 2020-05-26 07:25 | NUR ---
PHYSICAL THERAPY CO-SIGN I approve of the Physical Therapy notes written above. Dunia Guerra PT
--- NOTE | 2020-05-26 07:39 | NUR ---
OCCUPATIONAL THERAPY CO-SIGN I approve of the Occupational Therapy notes written above. TYLER PUENTE, OTR/L
[2020-05-26] MEDS ORDERED: XIFAXAN550 MG PO (22:06)
== END 2020-05-25 17:03 | disposition home or self-care (01) | DRG 315 ==
LOC: ED 08:32 → EDHOLD 12:36 → 5E 12:36
PROVIDERS: Emergency Medicine; Internal Medicine; Orthopaedic Surgery; Registered Nurse; ADMIT Family Medicine; ATTEND Family Medicine
PROC: 0PSC04Z Reposition Right Humeral Head with Internal Fixation Device, Open Approach (ICD-10-PCS; principal; 2020-05-22)
PROC: 30233N1 Transfusion of Nonautologous Red Blood Cells into Peripheral Vein, Percutaneous Approach (ICD-10-PCS; 2020-05-24)
DX: M80.021A Age-related osteoporosis with current pathological fracture, right humerus, initial encounter for fracture (principal); K21.9 Gastro-esophageal reflux disease without esophagitis; I10 Essential (primary) hypertension; F32.9 Major depressive disorder, single episode, unspecified; K70.30 Alcoholic cirrhosis of liver without ascites; F17.210 Nicotine dependence, cigarettes, uncomplicated; N30.00 Acute cystitis without hematuria; D53.9 Nutritional anemia, unspecified; E87.2 Acidosis; R79.82 Elevated C-reactive protein (CRP); R74.8 Abnormal levels of other serum enzymes; E43 Unspecified severe protein-calorie malnutrition; M80.051A Age-related osteoporosis with current pathological fracture, right femur, initial encounter for fracture; Z20.828 Contact with and (suspected) exposure to other viral communicable diseases; F10.129 Alcohol abuse with intoxication, unspecified; B19.20 Unspecified viral hepatitis C without hepatic coma; R26.2 Difficulty in walking, not elsewhere classified; J44.9 Chronic obstructive pulmonary disease, unspecified; Z68.20 Body mass index [BMI] 20.0-20.9, adult; Z82.49 Family history of ischemic heart disease and other diseases of the circulatory system; Z82.3 Family history of stroke; Z79.899 Other long term (current) drug therapy

== ENCOUNTER 2020-05-26 13:42 | Inpatient (IN) | payer OTHER ==
[~2020-05-26] VITALS: Ht 170.1 cm; Wt 60.6 kg
[~2020-05-26 13:42] MED LIST changes: +FUROSEMIDE40 MG PO; +KRISTALOSE20 GM PO; +NATURE'S BLEND F1 MG PO; +OMNICEF300 MG PO; +Oscal,Oyster S500 MG PO; +RECLAST5 MG/100 M IV; +ROXICODONE5 MG PO; +VITAMIN B-1100 M1 PO; +VITAMIN D250 MCG PO
[2020-05-26 13:53] VITALS: BP 152/73
[2020-05-26 14:24] LABS: BASO # 0.1 10*3/uL (0.0-0.1); BASO % 1.1 % (0.0-1.0); EOS # 0.1 10*3/uL (0.0-0.4); EOS % 1.1 % (1.0-4.0); LYMPH # 1.4 10*3/uL (1.3-4.4); LYMPH % 30.5 % (27.0-41.0); MEAN CELL VOLUME 94.6 fl (81.0-99.0); MEAN CORPUSCULAR HGB 30.1 pg (27.0-31.0); MEAN CORPUSCULAR HGB CONC 31.8 g/dl (33.0-37.0); MEAN PLATELET VOLUME 9.1 fl (9.6-12.3); MONO # 0.5 10*3/uL (0.1-1.0); MONO % 10.8 % (3.0-9.0); NEUT # 2.6 10*3/uL (2.3-7.9); NEUT % 56.5 % (47.0-73.0); PLATELET COUNT AUTOMATED 172 10*3/uL (130-400); RED BLOOD COUNT 2.96 10*6/uL (4.10-5.10); RED CELL DISTRI WIDTH 26.7 % (0-14.5); WHITE BLOOD COUNT 4.5 10*3/uL (4.8-10.8)
[2020-05-26 14:39] LABS: ALBUMIN 2.3 gm/dl (3.1-4.5); ALKALINE PHOSPHATASE 136 U/L (45-117); BUN 4 mg/dl (7-24); CHLORIDE 108 mmol/L (98-107); CREATININE 0.43 mg/dL (0.55-1.02); POTASSIUM 3.5 mmol/L (3.5-5.1); SGOT/AST 39 IU/L (3-35); SGPT/ALT 19 U/L (12-78); SODIUM 140 mmol/L (136-145); TOTAL PROTEIN 5.6 gm/dL (6.4-8.2)
[2020-05-26 16:00] VITALS: BP 115/57
--- NOTE | 2020-05-26 17:02 | NUR ---
BRUISING NOTED TO RIGHT SIDE, PHOTOS OBTAINED, BRUISING ALSO NOTED TO LEFT ARM, PHOTOS OBTAINED. NO WOUNDS NOTED TO BACK OR BUTTOCK AREA WHEN TURNING PATIENT.
--- NOTE | 2020-05-26 17:54 | NUR ---
Time: 1749 A 55 year old FEMALE admitted to 5E under services of KIM FOWLER DO. Pt. arrived via bed from ER. Chief complaint: WEAKNES, RIGHT ARM PAIN. KENYA DENNY
[2020-05-26 17:58] LABS: BILIRUBIN Negative (Negative); BLOOD Negative (Negative); CLARITY Clear (Clear); COLOR Yellow (Yellow); GLUCOSE Negative (Negative); KETONE Negative (Negative); LEUKO ESTERASE Trace (Negative); NITRITE Negative (Negative); SPECIFIC GRAVITY <= 1.005 (1.001-1.030)
[2020-05-26 18:02] VITALS: BP 141/83
--- NOTE | 2020-05-26 18:11 | NUR ---
PT IN BED WITH EYES CLOSED AT THIS TIME NO COMPLAINTS
[2020-05-26 18:23] LABS: BACTERIA 4+
--- NOTE | 2020-05-26 20:00 | NUR ---
PATIENT RESTING IN BED WITH NO NEEDS MADE. BED IN LOWEST POSITION, BED ALARM ON, CALL LIGHT IN REACH
[2020-05-26] MEDS ORDERED: XIFAXAN550 MG PO (22:06)
--- NOTE | 2020-05-26 22:10 | NUR ---
DR GALLEGOS AWARE OF PATIENT'S MOTHER CALLING AND ADDING XIFAXAN TO HER MED REC
[2020-05-27] VITALS: BP 135/65
--- NOTE | 2020-05-27 00:34 | NUR ---
24 HR chart check completed.
--- NOTE | 2020-05-27 03:06 | NUR ---
MEDICATED WITH PRN PERCOCET FOR C/O RIGHT SHOULDER PAIN. WILL MONITOR
--- NOTE | 2020-05-27 03:47 | NUR ---
PATIENT RESTING IN BED WITH EYES CLOSED. MEDICATION SEEMS EFFECTIVE
[2020-05-27 06:32] LABS: CHLORIDE 108 mmol/L (98-107); POTASSIUM 3.2 mmol/L (3.5-5.1); SODIUM 140 mmol/L (136-145)
[2020-05-27 06:46] LABS: ALKALINE PHOSPHATASE 123 U/L (45-117); BUN 3 mg/dl (7-24); CREATININE 0.42 mg/dL (0.55-1.02); SGOT/AST 32 IU/L (3-35); SGPT/ALT 14 U/L (12-78)
[2020-05-27 06:52] LABS: HEMATOCRIT 25.5 % (37.0-47.0); LYMPH # 1.4 10*3/uL (1.3-4.4); LYMPH % 36.1 % (27.0-41.0); MEAN CELL VOLUME 92.7 fl (81.0-99.0); MEAN CORPUSCULAR HGB 29.8 pg (27.0-31.0); MEAN CORPUSCULAR HGB CONC 32.2 g/dl (33.0-37.0); MEAN PLATELET VOLUME 9.1 fl (9.6-12.3); MONO # 0.5 10*3/uL (0.1-1.0); MONO % 12.5 % (3.0-9.0); NEUT # 1.9 10*3/uL (2.3-7.9); NEUT % 49.1 % (47.0-73.0); PLATELET COUNT AUTOMATED 184 10*3/uL (130-400); RED BLOOD COUNT 2.75 10*6/uL (4.10-5.10); WHITE BLOOD COUNT 3.9 10*3/uL (4.8-10.8)
[2020-05-27 08:00] VITALS: BP 125/64
--- NOTE | 2020-05-27 08:20 | NUR ---
Occupational Therapy evaluation completed on 5 with full eval to follow. Upon arrival, patient's RUE sling was ill-fitted and did not support RUE. OTR readjusted sling and educated patient in sling wear and NWB RUE. Precautions include fall risk; bed alarm/chair alarm,NWB RUE, h/o recent fracture LUE , assist needed with all ADLs and tranfers, moderate complexity level 23012. Recommend OT per POC and SNF upon d/t to enable safe return home alone Thank you. Kezia Gaitan OTR/L
--- NOTE | 2020-05-27 08:20 | NUR ---
PHYSICAL THERAPY Physical Therapy evaluation completed on 5th floor with full evaluation to follow. Recommend physical therapy per plan of care and SNF upon discharge. Thank you for this referral. Dillon Ramos SPT Dunia Guerra PT
--- NOTE | 2020-05-27 08:50 | NUR ---
PATIENT C/O 10/10 PAIN TO RIGHT SHOULDER AT THIS TIME. MEDICATED WITH PO PERCOCET PER ORDER. WILL MONITOR FOR EFFECTIVENESS.
--- NOTE | 2020-05-27 08:50 | NUR ---
PT MEDICATED WITH PERCOCET AT THIS TIME FOR COMPLAINTS OF 9/10 R SHOULDER PAIN. WILL MONITOR FOR EFFECTIVENESS.
--- NOTE | 2020-05-27 09:30 | NUR ---
CONSULT CALLED TO .
--- NOTE | 2020-05-27 09:50 | NUR ---
PER PATIENT, PERCOCET HAS BEEN EFFECTIVE. RELAXED AT THIS TIME.
--- NOTE | 2020-05-27 09:50 | NUR ---
PER PATIENT, PRN PERCOCET HAS BEEN EFFECTIVE. DENIES FURTHER COMPLAINTS.
--- NOTE | 2020-05-27 10:44 | NUR ---
MANDREL MAKER FAXED REFERRAL TO [facility]. WILL NEED PT/OT EVALS TO COMPLETE REFERRAL. PRECERT WILL BE REQUIRED.
--- NOTE | 2020-05-27 11:41 | NUR ---
[facility] stating they are willing to accept this patient "pending auth" and pending C-19 results as long as patient has been swabbed. The patient C-19 swab was completed and taken to the lab. Patient is ok to go today if medically stable for discharge.
[2020-05-27 12:00] VITALS: BP 111/72
--- NOTE | 2020-05-27 12:05 | NUR ---
Slime Plant Operator in to talk to patient. Patient states lives at HOME with ALONE. There are NO steps in the home. Physician: PAMELA [facility]acy: [facility] Home health services: NONE Patient's level of ADLs: INDEPENDENT Patient has working utilities: YES DME: NONE Follow-up physician's appointment after d/c: WILL BE MADE BY HOSPITALIST NURSE DIRECTOR ON DISCHARGE Does patient want to access PORTAL?: NO Discharge plan PT LIVES AT HOME AND IS INDEPENDENT IN HER CARE PRIOR TO HER FALL. PT WAS RECENTLY HERE AND REFUSED SNF. DID AGREE TO [facility] WHICH WAS SET UP ON DISCHARGE. PT NOW BACK AND WANTS TO GO TO SNF PRIOR TO RETURNING HOME. REFERRAL HAS BEEN SENT TO [facility] PT CHOICE OF FACILITIES. WILL CONTINUE TO FOLLOW.. CLINTON MILLER
--- NOTE | 2020-05-27 13:15 | NUR ---
OT NOTE Pt was seen this P.M. 1:1 for 28 minute OT session. Upon arrival pt was supine in bed with head of bed elevated eating her lunch with RUE sling not donned proper. Pt was able to recall and verbalize her NWB to RUE precaution and had reports of 10/10 R shoulder pain. Pt's sling was readjusted and donned for correct fit. Pt required maxA for set up of tray. Self feeding completed with SBA while using her LUE to manage spoon for her pudding and mashed potatoes. However other food that required to be pierced with a fork pt was unable to complete. This therapist offered suggestions and help however pt declined stating "I am okay, I don't need any help. I don't want that anyways but thank you." Pt managed drinks with her L hand that had a lid and straw with SBA. Pt then transferred sit to supine with Elmre. Sit to stand completed from bed level with Elmer followed by functional mobility to the bathroom and back with CGA hand held (left). Pt had one LOB that required Elmer to correct. Pt transferred back into bed sit to supine with SBA and was repositioned with modA. There she was left with call light in hand, tray table in place, and bed alarm activated for safety. Continue with rec D/C plan to SNF. SABRINA Arevalo/Candy
--- NOTE | 2020-05-27 14:51 | NUR ---
PATIENT MEDICATED WITH PERCOCET PER PRN ORDER FOR COMPLAINTS OF 10/10 RIGHT SHOULDER PAIN. WILL MONITOR FOR EFFECTIVENESS.
--- NOTE | 2020-05-27 15:51 | NUR ---
PER PATIENT, PRN MEDICATION HAS BEEN EFFECTIVE. RESTING, EYES CLOSED. CALL LIGHT IN REACH.
[2020-05-27 16:00] VITALS: BP 125/69
[2020-05-27 20:00] VITALS: BP 109/62
--- NOTE | 2020-05-27 21:57 | NUR ---
FAMILY UPDATED ON POC
[2020-05-28] VITALS: BP 125/69
[2020-05-28 06:31] LABS: BASO % 0.7 % (0.0-1.0); HEMATOCRIT 26.4 % (37.0-47.0); LYMPH # 1.7 10*3/uL (1.3-4.4); LYMPH % 40.3 % (27.0-41.0); MEAN CELL VOLUME 94.6 fl (81.0-99.0); MEAN CORPUSCULAR HGB 30.1 pg (27.0-31.0); MEAN CORPUSCULAR HGB CONC 31.8 g/dl (33.0-37.0); MEAN PLATELET VOLUME 8.9 fl (9.6-12.3); MONO # 0.6 10*3/uL (0.1-1.0); MONO % 13.9 % (3.0-9.0); NEUT # 1.9 10*3/uL (2.3-7.9); NEUT % 44.9 % (47.0-73.0); PLATELET COUNT AUTOMATED 190 10*3/uL (130-400); RED BLOOD COUNT 2.79 10*6/uL (4.10-5.10); RED CELL DISTRI WIDTH 25.6 % (0-14.5); WHITE BLOOD COUNT 4.2 10*3/uL (4.8-10.8)
--- NOTE | 2020-05-28 06:43 | NUR ---
DR. GALLEGOS NOTIFIED OF CRITICAL AMMONIA OF 70. NO NEW ORDERS.
--- NOTE | 2020-05-28 07:00 | NUR ---
per patient, percocet has been effective. resting at this time with no complaints.
[2020-05-28 08:00] VITALS: BP 110/56
[2020-05-28 10:17] LABS: ALBUMIN 2.1 gm/dl (3.1-4.5); ALKALINE PHOSPHATASE 129 U/L (45-117); BUN 4 mg/dl (7-24); CHLORIDE 111 mmol/L (98-107); CREATININE 0.54 mg/dL (0.55-1.02); POTASSIUM 3.6 mmol/L (3.5-5.1); SGOT/AST 37 IU/L (3-35); SGPT/ALT 16 U/L (12-78); SODIUM 142 mmol/L (136-145); TOTAL PROTEIN 5.3 gm/dL (6.4-8.2)
--- NOTE | 2020-05-28 10:37 | NUR ---
PHYSICAL THERAPY TREATMENT TIME: OUT 10:37 AM 1:1 with FUR COMBER for 21 MINUTES PRESENTATION: Patient gives informed consent for treatment Patient identified by name and on wristband No spO2 No IVs COMPLAINTS: R SHOULDER PAIN but patient did not give pain level WB STATUS: NWB on the R UE with sling WBAT on the L UE ASSISTIVE DEVICE: STRAIGHT CANE used in L hand TRANSFERS: Supine <> sit on EOB: MIN A X 1 Sitting on EOB: SBA STS <> EOB: CGA STS <> COMMODE: MIN A X 1 Verbal cues for pushing off with L hand TREATMENT: GAIT with Straight cane in L hand for 15' x 1 and a 2nd gait of 20' X 1 180' x 1 turn with Straight cane with CGA Verbal cues for step length and proper use of cane Patient was carrying cane at one point and had to bed verbal cued to properly use cane. RESPONSE TO TREATMENT: Patient did not have any LOB or SOB with treatment Patient required CGA with gait Patient is NWB on the R UE No increased pain duuring or post treatment CONCLUSION: Patient was left in sitting in bedside chair Call light within reach Chair alarm attached and tested Patient tray table left near patient PREMA SYED FUR COMBER
--- NOTE | 2020-05-28 10:37 | NUR ---
OT NOTE Pt was seen this A.M. 1:1 for 25 minute OT session. Upon arrival pt was supine in bed. Pt identified by name and and had complaints of R shoulder pain which she did not rate on 0-10 pain scale. Pt's R sling was not donned proper requiring maxA to correct. Pt was able to verbalize and self recall her NWB to RUE. Pt transferred supine to sit EOB with Elmer X 1 for assist with upper body. While sitting EOB pt donned B socks using her LUE with Elmer. Sit to stand completed from bed level with CGA. Functional mobility was then completed to the bathroom with CGA and use of straight cane for UE support. There she transferred on to the standard commode with CGA and off with Elmer due to low surface. Clothing management completed with modA and toilet hygiene completed with CGA while seated. Functional mobility completed back to the recliner with CGA and use of straight cane. There she was left with call light in hand, tray table in place, and body alarm activated for safety. Continue with rec D/C plan to SNF. AMANDO Arevalo
--- NOTE | 2020-05-28 11:57 | NUR ---
SITTING UP IN CHAIR AT THIS TIME WITH NO COMPLAINTS NOTED. CALL LIGHT WITHIN REACH.
[2020-05-28 12:00] VITALS: BP 106/65
--- NOTE | 2020-05-28 12:47 | NUR ---
PT CAN GO TO [facility] WHEN MEDICALLY STABLE. WILL CONTINUE TO FOLLOW.
--- NOTE | 2020-05-28 13:17 | NUR ---
PHYSICAL THERAPY TREATMENT TIME: IN 1300 - OUT 1317 17 MINUTES TOTAL 1:1 WITH THIS LINER WORKER PRESENTATION: Patient presented to therapy in supine with head of bed elevated Bed alarm on Inforemd consent given Indentified by name and on wristband No IVs No spO2 COMPLAINTS: R SHOULDER PAIN Sling is again slid down from where it should be on R UE WB STATUS: NWB ON THE R UE WBAT ON THE L UE ORIF OF R SHOULDER ASSISTIVE DEVICE: Standard Cane TRANSFERS: Supine <> sit EOB: SBA STS <> EOB : CGA TREATMENT: GAIT with Wh Walker and CGA for 25' X 1 Verbal cues for correct use of standard cane in L hand Bilateral LE ther ex in sitting on EOB 2 x 10 reps each including LAQs, Marches and Heel raises for strengthning. 30 sec SIT TO STAND TEST FROM EOB: 6 SIT TO STANDS IN 30 SECONDS USING UEs to push off of bed. RESPONSE TO TREATMENT: Patient tolerated treatment without LOB with straight gait and with turns. Patient used standard cane in L hand Verbal cues for proper use of cane V/Cs for upright posture, step-length during gait and proper hand placement when transferring. No increased pain post treatment CONCLUSION: Patient left in supine in bed with head of bed elevated Call light within reach Bed alarm on Tray table near patient PREMA Beba YAHAIRA LINER WORKER
--- NOTE | 2020-05-28 13:17 | NUR ---
OT NOTE Pt was seen this P.M. 1:1 for 17 minute OT session. Upon arrival pt was supine in bed. Pt identified by name and and had complaints of 8/10 R shoulder pain. Pt's RUE sling was not donned proper requiring maxA to correct. Pt transferred supine to sit EOB with SBA. While sitting EOB completed PROM to her R elbow and AROM to R wrist, hand, and forearm over all planes for 2 X 10 to increase and restore maximum functional use. Pt then transferred back into bed sit to supine with SBA. There she was left with call light in hand, tray table in place, and bed alarm activated for safety. Continue with rec D/C plan to SNF. SABRINA Arevalo/Candy
--- NOTE | 2020-05-28 14:32 | NUR ---
PT MEDICATED WITH PERCOCET AT THIS TIME PER ORDER FOR COMPLAINTS OF PAIN 8/10 IN RIGHT SHOULDER. WILL MONITOR.
--- NOTE | 2020-05-28 15:32 | NUR ---
PER PATIENT, PRN MEDICATION HAS BEEN EFFECTIVE. RESTING AT THIS TIME.
[2020-05-28 16:00] VITALS: BP 106/50
[2020-05-28 20:00] VITALS: BP 123/64
--- NOTE | 2020-05-28 22:55 | NUR ---
PERCOCET GIVEN FOR RT SHOULDER PAIN RATED 9/10
[2020-05-29] VITALS: BP 123/56
--- NOTE | 2020-05-29 05:27 | NUR ---
PERCOCET GIVEN FOR C/O PAIN 05/23 TO BLE SHOULDERS RT ARM > LT
[2020-05-29 06:44] LABS: BASO # 0.1 10*3/uL (0.0-0.1); BASO % 1.4 % (0.0-1.0); EOS # 0.1 10*3/uL (0.0-0.4); EOS % 1.1 % (1.0-4.0); HEMATOCRIT 27.2 % (37.0-47.0); LYMPH # 1.6 10*3/uL (1.3-4.4); MEAN CELL VOLUME 94.8 fl (81.0-99.0); MEAN CORPUSCULAR HGB CONC 31.6 g/dl (33.0-37.0); MONO # 0.6 10*3/uL (0.1-1.0); MONO % 12.4 % (3.0-9.0); NEUT # 2.2 10*3/uL (2.3-7.9); NEUT % 48.9 % (47.0-73.0); PLATELET COUNT AUTOMATED 203 10*3/uL (130-400); RED BLOOD COUNT 2.87 10*6/uL (4.10-5.10); RED CELL DISTRI WIDTH 25.2 % (0-14.5); WHITE BLOOD COUNT 4.4 10*3/uL (4.8-10.8)
[2020-05-29 07:10] LABS: ALBUMIN 2.1 gm/dl (3.1-4.5); ALKALINE PHOSPHATASE 127 U/L (45-117); BUN 4 mg/dl (7-24); CHLORIDE 112 mmol/L (98-107); CREATININE 0.52 mg/dL (0.55-1.02); POTASSIUM 3.1 mmol/L (3.5-5.1); SGOT/AST 36 IU/L (3-35); SGPT/ALT 18 U/L (12-78); SODIUM 143 mmol/L (136-145); TOTAL PROTEIN 5.6 gm/dL (6.4-8.2)
[2020-05-29 08:00] VITALS: BP 121/60
--- NOTE | 2020-05-29 08:00 | NUR ---
Neurological: awake, alert Respiratory: easy, regular,no distress Breath sounds: clear Cough: moist Cardiovascular: no problem Gastrointestinal: soft Genito/Urinary: frequency Musculoskeketal: warm and dry, color pink CHAYO REINA
--- NOTE | 2020-05-29 08:00 | NUR ---
Neurological: awake,alert,oriented Respiratory: diminished bilaterally Breath sounds: clear Cough: none Cardiovascular: edema Gastrointestinal: obese Genito/Urinary: no problem Musculoskeketal: warm and dry, color pink CHAYO REINA
--- NOTE | 2020-05-29 09:45 | NUR ---
PHYSICAL THERAPY Patient seen this am 1:1 for therapy visit and was resting supine in bed upon therapist arrival. Patient identified by name / and was joined by OT home based assistant for observation only this session. Patient reports 10/10 R shoulder pain this morning, presents with R shoulder sling and is NWB on R UE. Patient transfers supine to sit EOB with MIN A x 1, needing a minute or so to collect herself, then completes sit to stand transfer, CGA x 1. Patient ambulates with use of st cane, 25'x 1, CGA, demonstrating very slow, cautious step sequence. Patient needed v/c for increased stride to improve "waddling" gait pattern and returned to supine in bed with increased fatigue. Patient is very fearful of falling and remained in bed with call light, tray table, telephone, bed alarm for safety. Will continue per POC as tolerated, total treatment time 13 minutes. Leobardo Ching, CAR RENTAL SERVICE ATTENDANT
--- NOTE | 2020-05-29 09:46 | NUR ---
OT NOTE Pt was seen this A.M. 1:1 for 25 minute OT session. Upon arrival pt was supine in bed. Pt identified by name and and had complaints of 10/10 R shoulder pain. Pt presented to therapy with sling to her RUE which was not donned proper. Pt transferred supine to sit EOB with Elmer for assist with her upper body. While sitting EOB pt completed AROM to her R digits, wrist, and forearm over all planes for 2 X 10. Throughout pt required constant verbal prompts for attention to task. PROM then completed to her R elbow for 2 X 10. Sling was donned to proper fit with maxA. Sit to stand completed from bed level with CGA and use of straight cane in her L hand for UE support. Functional mobility completed to the bathroom and back with CGA and use of straight cane. Pt transferred back into bed sit to supine with Elmer and was repositioned with maxA x 2. There she was left with call light in hand, tray table in place, and bed alarm activated for safety. Continue with rec D/C plan to SNF. SABRINA Arevalo/Candy
--- NOTE | 2020-05-29 10:11 | NUR ---
C/O BOTH SHOULDERS HURTING. SLING TO RT. SHOULDER ON. REPOSITIONED WITHOUT EFFECT. MEDICATED PER PRN ORDER. WILL MONITOR.
--- NOTE | 2020-05-29 10:54 | NUR ---
NO FURTHER C/O PAIN AT THIS TIME.
--- NOTE | 2020-05-29 11:30 | NUR ---
AMMUNITION STORAGE SUPERINTENDENT FAXED UPDATE TO [facility].
--- NOTE | 2020-05-29 11:35 | NUR ---
PT CAN GO TO [facility] WHEN MEDICALLY STABLE. WILL CONTINUE TO FOLLOW.
--- NOTE | 2020-05-29 11:53 | NUR ---
RESIDENTIAL GREEN BUILDING DESIGNER FAXED UPDATES TO [facility].
[2020-05-29 12:00] VITALS: BP 131/72
--- NOTE | 2020-05-29 12:15 | NUR ---
OT NOTE Pt was seen this P.M. for second OT session consisting of 15 minutes. Upon arrival pt was supine in bed. Pt identified by name and and had complaints of 8/10 R shoulder pain. Pt's sling was not donned proper upon arrival. Pt transferred supine to sit EOB with Elmer. Sit to stand completed from bed level with CGA followed by functional mobility to the bathroom with CGA and use of straight cane for UE support. There she transferred on to the standard commode with Elmer due to poor safety with commode alignment and off with Elmer due to low surface. Clothing management completed with modA and toilet hygiene completed CGA while seated. Functional mobility completed back to the recliner with CGA and use of straight cane. There she was left with call light in hand, tray table in place, and bed alarm activated for safety. Continue with rec D/C plan to SNF. SABRINA Arevalo/Candy
--- NOTE | 2020-05-29 15:45 | NUR ---
PHYSICAL THERAPY CO-SIGN I approve of the Physical Therapy notes written above. Dunia Guerra PT
[2020-05-29 16:00] VITALS: BP 107/60
[2020-05-29 20:00] VITALS: BP 124/70
--- NOTE | 2020-05-29 21:22 | NUR ---
PERCOCET GIVEN PER ORDER FOR PAIN IN ARMS, SEE MAR.
--- NOTE | 2020-05-29 22:20 | NUR ---
PERCOCET EFFECTIVE FOR PAIN AND RESTORIL BECOMING EFFECTIVE PT. DROWSY.
[2020-05-30] VITALS: BP 135/67
--- NOTE | 2020-05-30 02:13 | NUR ---
24 HR chart check completed.
--- NOTE | 2020-05-30 04:01 | NUR ---
AWAKE UP TO BATHROOM. C/O PAIN IN ARMS. PERCOCET GIVEN PER ORDER FOR PAIN RATED "7" SEE MAR.
--- NOTE | 2020-05-30 05:00 | NUR ---
PERCOCET EFFECTIVE FOR PAIN PER PT.
--- NOTE | 2020-05-30 05:40 | NUR ---
CALLED DR. GALLEGOS AND NOTIFIED HIM THAT PATIENT WAS ORDERED PRILOSEC AND PROTONIX AND PATIENT TAKES PRILOSEC AT HOME. ORDER RECEIVED TO AMAIRANI CROWE.
[2020-05-30 06:19] LABS: BASO # 0.1 10*3/uL (0.0-0.1); EOS # 0.1 10*3/uL (0.0-0.4); EOS % 1.9 % (1.0-4.0); HEMATOCRIT 28.3 % (37.0-47.0); LYMPH # 1.7 10*3/uL (1.3-4.4); LYMPH % 31.9 % (27.0-41.0); MEAN CELL VOLUME 93.1 fl (81.0-99.0); MEAN CORPUSCULAR HGB 28.9 pg (27.0-31.0); MEAN CORPUSCULAR HGB CONC 31.1 g/dl (33.0-37.0); MEAN PLATELET VOLUME 8.8 fl (9.6-12.3); MONO # 0.7 10*3/uL (0.1-1.0); MONO % 13.2 % (3.0-9.0); NEUT # 2.7 10*3/uL (2.3-7.9); NEUT % 51.8 % (47.0-73.0); PLATELET COUNT AUTOMATED 239 10*3/uL (130-400); RED BLOOD COUNT 3.04 10*6/uL (4.10-5.10); RED CELL DISTRI WIDTH 24.4 % (0-14.5); WHITE BLOOD COUNT 5.2 10*3/uL (4.8-10.8)
[2020-05-30 06:35] LABS: ALBUMIN 2.2 gm/dl (3.1-4.5); BUN 4 mg/dl (7-24); CHLORIDE 109 mmol/L (98-107); CREATININE 0.47 mg/dL (0.55-1.02); POTASSIUM 3.5 mmol/L (3.5-5.1); SGOT/AST 37 IU/L (3-35); SGPT/ALT 18 U/L (12-78); SODIUM 141 mmol/L (136-145); TOTAL PROTEIN 5.8 gm/dL (6.4-8.2)
[2020-05-30 06:36] LABS: ALKALINE PHOSPHATASE 150 U/L (45-117)
[2020-05-30 08:00] VITALS: BP 140/70
--- NOTE | 2020-05-30 09:17 | NUR ---
PHYSICAL THERAPY PT SEEN 1:1. PT IDENTIFIED BY NAME AND . PT C/O 10/10 PAIN IN R SHOULDER WHILE LAYING SUPINE IN BED. BED MOBILITY FROM SUPINE TO SITTING EOB=MIN A D/T INCREASED PAIN. SITTING EOB BALANCE WHILE EATING BREAKFAST W/ INCREASED DIFFICULTY D/T R UE IN SLING AND ATTEMPTING TO USE IT FOR EATIGN. EDUCATED ON IMPROTANCE OF KEEPING UE IN SLING AND DECREASE USE AND DECREASE PAIN W/ MINIMAL FOLLOW THORUGH. PT REFUSES OOB AT THIS TIME AND REQUESTS TO RETURN TO SUPINE IN BED TO GO BACK TO SLEEP, REQUIRING MIN/MOD A FOR TRUNK AND B LE. BED ALARM ENABLED AND CALL LIGHT AND TRAY PALCED W/IN REACH. TOTAL TX TIME=14 MIN BELLA MEYER, CLINICAL TRIALS DATA COORDINATOR
--- NOTE | 2020-05-30 10:11 | NUR ---
MEDICATED WITH PRN PO PERCOCET FOR BILATERAL ARMS PAIN.
[2020-05-30 12:00] VITALS: BP 123/67
--- NOTE | 2020-05-30 18:03 | NUR ---
MEDICATED WITH PRN PO PERCOCET FOR BILATERAL SHOULDERS/ARMS PAIN.
--- NOTE | 2020-05-30 18:43 | NUR ---
PRN PO PERCOCET EFFECTIVE, PER PATIENT.
[2020-05-30 20:00] VITALS: BP 136/70
[2020-05-31] VITALS: BP 125/66
--- NOTE | 2020-05-31 02:46 | NUR ---
PATIENT C/O PAIN SHOULDERS/ARMS RATED "7" PERCOCET. SEE MAR.
--- NOTE | 2020-05-31 03:45 | NUR ---
PERCOCET EFFECTIVE FOR PAIN.
[2020-05-31 06:51] LABS: BASO # 0.1 10*3/uL (0.0-0.1); BASO % 0.8 % (0.0-1.0); HEMATOCRIT 27.8 % (37.0-47.0); LYMPH # 1.9 10*3/uL (1.3-4.4); LYMPH % 24.3 % (27.0-41.0); MEAN CELL VOLUME 94.9 fl (81.0-99.0); MEAN CORPUSCULAR HGB CONC 30.6 g/dl (33.0-37.0); MEAN PLATELET VOLUME 8.9 fl (9.6-12.3); MONO # 0.7 10*3/uL (0.1-1.0); MONO % 8.8 % (3.0-9.0); NEUT # 5.2 10*3/uL (2.3-7.9); PLATELET COUNT AUTOMATED 239 10*3/uL (130-400); RED BLOOD COUNT 2.93 10*6/uL (4.10-5.10); WHITE BLOOD COUNT 7.9 10*3/uL (4.8-10.8)
[2020-05-31 07:10] LABS: ALKALINE PHOSPHATASE 156 U/L (45-117); BUN 4 mg/dl (7-24); CHLORIDE 109 mmol/L (98-107); CREATININE 0.43 mg/dL (0.55-1.02); POTASSIUM 3.4 mmol/L (3.5-5.1); SGOT/AST 33 IU/L (3-35); SGPT/ALT 14 U/L (12-78); SODIUM 140 mmol/L (136-145); TOTAL PROTEIN 5.3 gm/dL (6.4-8.2)
[2020-05-31 08:00] VITALS: BP 146/79
--- NOTE | 2020-05-31 08:35 | NUR ---
PT MEDICATED WITH OXY-IR FOR COMPLAINTS OF GENERALIZED PAIN, MOSTLY IN RIGHT SHOULDER. WILL MONITOR FOR EFFECTIVENESS.
--- NOTE | 2020-05-31 09:00 | NUR ---
PHYSICAL THERAPY patient seen today in room for 1:1 treatment with this PT; session consisted of BLE ther ex for 2 sets of 10 reps and then worked on functional bed mobility including rolling to the L and sup <> sit with mod of 1 due to unable to use the RUE. Gait training with SPC for 25 ft 4 bouts today with min/mod of1. Upon completion of session was returned to bed per patient request with call light in reach and bed alarm in place. d/c recommendation at this time would be SNF. thank you bari navas PT
--- NOTE | 2020-05-31 09:35 | NUR ---
PER PATIENT, PRN MEDICATION HAS BEEN EFFECTIVE - NO FURTHER COMPLAINTS. RELAXED.
[2020-05-31 12:00] VITALS: BP 116/53
--- NOTE | 2020-05-31 13:57 | NUR ---
PT MEDICATED WITH OXY IR PER PRN ORDER FOR C/O PAIN IN RIGHT SHOULDER. 04/23. WILL MONITOR.
--- NOTE | 2020-05-31 14:57 | NUR ---
PER PATIENT, PRN MEDICATION HAS BEEN EFFECTIVE. NO COMPLAINTS AT THIS TIME.
[2020-05-31 16:00] VITALS: BP 110/62
[2020-05-31 20:00] VITALS: BP 120/61
--- NOTE | 2020-05-31 20:16 | NUR ---
MEDICATED WITH PRN RON FOR C/O RIGHT ARM PAIN. WILL MONITOR
--- NOTE | 2020-05-31 21:16 | NUR ---
MEDICATION EFFECTIVE PER PATIENT
[2020-06-01] VITALS: BP 123/66
--- NOTE | 2020-06-01 02:20 | NUR ---
MEDICATED WITH PRN OXY FOR C/O PAIN. WILL MONITOR
--- NOTE | 2020-06-01 02:53 | NUR ---
24 HR chart check completed.
--- NOTE | 2020-06-01 03:20 | NUR ---
PATIENT SLEEPING. MEDICATION SEEMS EFFECTIVE
--- NOTE | 2020-06-01 05:10 | NUR ---
MEDICATED WITH PRN TYLENOL FOR C/O RIGHT SHOULDER PAIN. WILL MONITOR
[2020-06-01 06:51] LABS: BUN 3 mg/dl (7-24); CHLORIDE 110 mmol/L (98-107); CREATININE 0.56 mg/dL (0.55-1.02); POTASSIUM 3.5 mmol/L (3.5-5.1); SODIUM 141 mmol/L (136-145)
--- NOTE | 2020-06-01 07:01 | NUR ---
DR CALLEJAS AWARE OF AMMONIA 58
[2020-06-01 08:00] VITALS: BP 129/71
--- NOTE | 2020-06-01 08:50 | NUR ---
PATIENT C/O 8 RIGHT SHOULDER PAIN AND MEDICATED WITH PO OXY IR PER ORDER. WILL MONITOR.
--- NOTE | 2020-06-01 09:20 | NUR ---
OT NOTE Pt was seen this A.M. 1:1 for 25 minute OT session. Upon arrival pt was supine in bed. Pt identified by name and and had complaints of 8/10 R shoulder pain. Pt presented to therapy with R sling which was not donned proper. While supine in bed with head of bed elevated pt completed self feeding using L hand with modA for set up of tray and then supervision. Pt transferred supine to sit EOB with SBA. While sitting EOB completed AROM to her hand, wrist, and forearm over all planes for 1 X 15 and PROM to R elbow for 1 X 15. Pt had no complaints throughout. Donned R sling with maxA. Sit to stand completed from bed level with CGA and use of straight cane in her LUE. Functional mobility completed to the bathroom with CGA and use of straight cane, pt presented with bouts of unsteady stance that required Elmer to correct. Verbal prompts provided throughout for slowing down due to being impulsive, pt presented with fair carry over. Pt transferred on/off standard commode with Elmer for safety with alignment and off due to low surface. Clothing management completed with Elmer and toilet hygiene completed with CGA for safety. Functional mobility completed back to the EOB with CGA and use of straight cane. There she transferred sit to supine with SBA. There she was left with call light in hand, tray table in place, and bed alarm activated for safety. Continue with rec D/C plan to SNF. AMANDO Arevalo
--- NOTE | 2020-06-01 09:50 | NUR ---
PER PATIENT, PRN MED EFFECTIVE.
--- NOTE | 2020-06-01 09:50 | NUR ---
PHYSICAL THERAPY Patient seen this am 1;1 for therapy visit and was supine in bed upon therapist arrival. Patient identified by name / and presented with R shoulder sling, voicing 10/10 R shoulder pain, 9/10 L axillary area pain. Patient is NWB on R UE while transfering supine to sit EOB, needing a few seconds to collect herself, then sit to stand SBA x 1. Patient ambulated with use of st cane, CGA, 40'x 1, 20'x 1, demonstrating intial "waddling" gait pattern. Patient needed v/c to increase stride and was a little "shaky" during 180 degree turn around. Patient returned to supine in bed with mild fatigue and remained in bed with call light, tray table, telephone, bed alarm for safety. Will continue per POC as tolerated, total treatemnt time 16 minutes. Leobardo Ching, JOURNEYMAN PIPEFITTER
[2020-06-01 12:00] VITALS: BP 110/67
--- NOTE | 2020-06-01 13:45 | NUR ---
PHYSICAL THERAPY Patient seen this pm 1;1 for therapy visit and was resting supine in bed upon therapist arrival. Patient identified by name / and reports 9/10 R shoulder pain. OT outpatient physical therapist assistant was also present for observation this session as patient presented with R shoulder sling that was adjusted for proper fit / comfort by OT outpatient physical therapist assistant. Patient transfers supine to sit EOB, then sit to stand SBA x 1, then ambulated with use of st cane, SBA, 40'x 1 to doorway, demonstrating slow yakov and no LOB during straight line gait, however was a little unsteady during all 90/180 turns. Patient returned to supine in bed and remained with call light, tray table, telephone, bed alarm for safety. Will continue per POC as tolerated, total treatment time 14 minutes. Leobardo Ching, CADASTRAL SURVEYOR
--- NOTE | 2020-06-01 13:45 | NUR ---
Patient updated clinicals and therapy notes faxed to [facility] for review. Patient has been accepted, covid is negative, patient is ok to go when medically stable for discharge.
--- NOTE | 2020-06-01 13:52 | NUR ---
OT NOTE Pt was seen this P.M. 1:1 for 15 minute OT session. Upon arrival pt was supine in bed. Pt identified by name and and had complaints of 9/10 R shoulder pain. Pt transferred supine to sit EOB with SBA. While sitting EOB pt's R sling was donned with maxA. Sit to stand completed from bed level with SBA and use of straight cane for UE support. Functional mobility completed to the bathroom and back with SBA and use of straight cane. Challenged pt's dynamic standing tolerance needed for increased I in self care tasks and functional transfers. Pt was able to tolerate aprox 3 minutes at a time before sitting due to fatigue. Pt transferred back to bed sit to supine with SBA. There she was left with call light in hand, tray table in place, and bed alarm activated for safety. Continue with rec D/C plan to SNF. SABRINA Arevalo/Candy
--- NOTE | 2020-06-01 13:53 | NUR ---
Notified Santi howell that patient will need 1GM of ertapenum daily until 06/04 and they are late putting in the PICC lines today. Patient may be able to get her pick line this evening and there is a possibility of discharge tonight. OK to go when stable.
--- NOTE | 2020-06-01 14:03 | NUR ---
PATIENT MEDICATED WITH OXY IR PER ORDER FOIR COMPLAINTS OF RIGHT SHOULDER PAIN 04/23. WILL MONITOR.
[2020-06-01] MEDS ORDERED: ERTAPENEM1 GM IV (15:37)
[2020-06-01] MEDS ORDERED: RECLAST5 MG/100 M IV (15:44)
[2020-06-01] MEDS ORDERED: LACTULOSE20 GM/30 M PO (15:44)
[2020-06-01] MEDS ORDERED: OXYCODONE HCL5 MG PO ×2 (15:44→18:17)
--- NOTE | 2020-06-01 16:32 | NUR ---
LIFE TEAM TO PICK PT UP AT 1730 FOR TRANSPORT TO [facility]. [facility] ON [address] NOTIFIED.
--- NOTE | 2020-06-01 17:35 | NUR ---
Discharge instructions reviewed with patient/family. Patient receptive and verbalizes understanding. Follow-up care arranged. Written instructions given to patient/family. MIDLINE PATENT TO LEFT UPPER ARM. HEPLOCK DISCONTINUED. HOME MED GIVEN BACK FROM PHARMACY. REPORT GIVEN TO JULISSA THOMAS. WOUND PHOTOS TAKEN TO RT KNEE AND RT SHOULDER. BONITA MONTANO
--- NOTE | 2020-06-02 07:41 | NUR ---
PHYSICAL THERAPY CO-SIGN I approve of the Physical Therapy notes written above. Dunia Guerra PT
--- NOTE | 2020-06-02 07:41 | NUR ---
OCCUPATIONAL THERAPY CO-SIGN I approve of the Occupational Therapy notes written above. TYLER PUENTE, OTR/L
== END 2020-06-01 17:35 | disposition other institution (70) | DRG 279 ==
LOC: ED 13:42 → EDHOLD 15:44 → 5E 15:44
PROVIDERS: Emergency Medicine; Hospitalist; Internal Medicine; Nurse Practitioner Family; Student in an Organized Health Care Education/Training Program; ADMIT Internal Medicine; ATTEND Internal Medicine
PROC: 05HA33Z Insertion of Infusion Device into Left Brachial Vein, Percutaneous Approach (ICD-10-PCS; principal; 2020-06-01)
DX: K72.90 Hepatic failure, unspecified without coma (principal); R53.1 Weakness; M25.511 Pain in right shoulder; D64.9 Anemia, unspecified; E87.8 Other disorders of electrolyte and fluid balance, not elsewhere classified; R74.01 Elevation of levels of liver transaminase levels; M80.012 Age-related osteoporosis with current pathological fracture, left shoulder; E44.0 Moderate protein-calorie malnutrition; J44.9 Chronic obstructive pulmonary disease, unspecified; R74.8 Abnormal levels of other serum enzymes; D72.819 Decreased white blood cell count, unspecified; E87.6 Hypokalemia; Z16.12 Extended spectrum beta lactamase (ESBL) resistance; G89.18 Other acute postprocedural pain; N39.0 Urinary tract infection, site not specified; Z20.828 Contact with and (suspected) exposure to other viral communicable diseases; R10.9 Unspecified abdominal pain; B96.20 Unspecified Escherichia coli [E. coli] as the cause of diseases classified elsewhere; F10.10 Alcohol abuse, uncomplicated; K70.30 Alcoholic cirrhosis of liver without ascites; F17.210 Nicotine dependence, cigarettes, uncomplicated; K21.9 Gastro-esophageal reflux disease without esophagitis; I10 Essential (primary) hypertension; F32.9 Major depressive disorder, single episode, unspecified; B19.20 Unspecified viral hepatitis C without hepatic coma; Z87.440 Personal history of urinary (tract) infections; Z79.899 Other long term (current) drug therapy; Z82.49 Family history of ischemic heart disease and other diseases of the circulatory system; Z82.3 Family history of stroke; Z68.20 Body mass index [BMI] 20.0-20.9, adult

== ENCOUNTER → 2020-06-05 | Outpatient (CLI) | payer OTHER ==
[~2020-06-05] MED LIST changes: +ERTAPENEM1 GM IV; +LACTULOSE20 GM/30 M PO; +OXYCODONE HCL5 MG PO
== END | disposition home or self-care (01) ==
LOC: ORTHO 00:20
PROVIDERS: ATTEND Orthopaedic Surgery
DX: S42.291A Other displaced fracture of upper end of right humerus, initial encounter for closed fracture (principal); X58.XXXA Exposure to other specified factors, initial encounter; Y93.89 Activity, other specified; Y92.89 Other specified places as the place of occurrence of the external cause; Y99.8 Other external cause status

== ENCOUNTER → 2020-06-24 | Outpatient (CLI) | payer OTHER | END | disposition home or self-care (01) | LOC: ORTHO 00:39 | PROVIDERS: ATTEND Orthopaedic Surgery | DX: S42.291D Other displaced fracture of upper end of right humerus, subsequent encounter for fracture with routine healing (principal); X58.XXXA Exposure to other specified factors, initial encounter; Y93.89 Activity, other specified; Y92.89 Other specified places as the place of occurrence of the external cause; Y99.8 Other external cause status ==

== ENCOUNTER 2020-08-29 23:09 | Observation (INO) | payer OTHER ==
[~2020-08-29] VITALS: Ht 170.1 cm; Wt 52.6 kg
[2020-08-29 23:09] VITALS: BP 146/72
[2020-08-29 23:54] LABS: HEMATOCRIT 34.3 % (37.0-47.0); LYMPH # 0.8 10*3/uL (1.3-4.4); LYMPH % 26.5 % (27.0-41.0); MEAN CELL VOLUME 98.3 fl (81.0-99.0); MEAN CORPUSCULAR HGB 30.7 pg (27.0-31.0); MEAN CORPUSCULAR HGB CONC 31.2 g/dl (33.0-37.0); MEAN PLATELET VOLUME 9.2 fl (9.6-12.3); MONO # 0.1 10*3/uL (0.1-1.0); MONO % 3.9 % (3.0-9.0); NEUT # 2.1 10*3/uL (2.3-7.9); NEUT % 68.3 % (47.0-73.0); PLATELET COUNT AUTOMATED 61 10*3/uL (130-400); RED BLOOD COUNT 3.49 10*6/uL (4.10-5.10); RED CELL DISTRI WIDTH 18.2 % (0-14.5); WHITE BLOOD COUNT 3.1 10*3/uL (4.8-10.8)
[2020-08-30 00:09] LABS: INTERNATIONAL NORM RATIO 1.4 (2.0-3.5)
[2020-08-30 00:14] LABS: ALBUMIN 2.5 gm/dl (3.1-4.5); ALKALINE PHOSPHATASE 219 U/L (45-117); BUN 13 mg/dl (7-24); CHLORIDE 106 mmol/L (98-107); CREATININE 0.55 mg/dL (0.55-1.02); LIPASE 222 U/L (73-393); POTASSIUM 3.3 mmol/L (3.5-5.1); SGOT/AST 328 IU/L (3-35); SGPT/ALT 115 U/L (12-78); SODIUM 143 mmol/L (136-145); TOTAL PROTEIN 6.6 gm/dL (6.4-8.2)
[2020-08-30 00:18] LABS: TROPONIN I < 0.015 ng/ml (<0.045)
[2020-08-30 00:37] LABS: ACETAMINOPHEN (TYLENOL) < 5.0 ug/ml (10-30)
[2020-08-30 03:37] LABS: BILIRUBIN 1+ (Negative); BLOOD Trace-Lysed (Negative); CLARITY Turbid (Clear); COLOR Dark Yellow (Yellow); GLUCOSE Negative (Negative); KETONE Trace (Negative); LEUKO ESTERASE 3+ (Negative); NITRITE Positive (Negative)
[2020-08-30 03:45] LABS: BACTERIA 4+
[2020-08-30 03:46] LABS: EPITHELIAL CELLS 41-50; WBC 21-30 wbc/hpf (0-5)
[2020-08-30 08:00] VITALS: BP 141/71
[2020-08-30 20:00] VITALS: BP 138/80
[2020-08-31 04:25] VITALS: BP 136/78
[2020-08-31 06:17] LABS: ALBUMIN 2.5 gm/dl (3.1-4.5); BUN 8 mg/dl (7-24); CHLORIDE 99 mmol/L (98-107); CREATININE 0.52 mg/dL (0.55-1.02); POTASSIUM 3.8 mmol/L (3.5-5.1); SGOT/AST 225 IU/L (3-35); SGPT/ALT 93 U/L (12-78); SODIUM 134 mmol/L (136-145); TOTAL PROTEIN 6.3 gm/dL (6.4-8.2)
[2020-08-31 06:19] LABS: ALKALINE PHOSPHATASE 204 U/L (45-117)
[2020-08-31 06:28] VITALS: BP 131/68
[2020-08-31 16:24] VITALS: BP 111/60
[2020-08-31 19:36] VITALS: BP 118/63
[2020-09-01] VITALS (8 sets, daily range): BP systolic 120–138; BP diastolic 56–78
[2020-09-01 06:28] LABS: ALBUMIN 2.3 gm/dl (3.1-4.5); BUN 12 mg/dl (7-24); CHLORIDE 98 mmol/L (98-107); CREATININE 0.61 mg/dL (0.55-1.02); POTASSIUM 3.5 mmol/L (3.5-5.1); SGOT/AST 151 IU/L (3-35); SGPT/ALT 75 U/L (12-78); SODIUM 132 mmol/L (136-145); TOTAL PROTEIN 6.1 gm/dL (6.4-8.2)
[2020-09-01 06:29] LABS: ALKALINE PHOSPHATASE 226 U/L (45-117)
[2020-09-02] VITALS: BP 134/78
[2020-09-02 08:00] VITALS: BP 108/68
[2020-09-02] MEDS ORDERED: CIPRO500 MG PO ×2 (09:55)
== END 2020-09-02 10:30 | disposition home or self-care (01) ==
LOC: ED 23:09 → EDHOLD 08-30 12:32 → ICCU 09-01 14:06 → 5E 09-01 20:36
PROVIDERS: Emergency Medicine; ADMIT Internal Medicine; ATTEND Internal Medicine
DX: F10.239 Alcohol dependence with withdrawal, unspecified (principal); R62.7 Adult failure to thrive; F10.129 Alcohol abuse with intoxication, unspecified; K21.00 Gastro-esophageal reflux disease with esophagitis, without bleeding; R74.01 Elevation of levels of liver transaminase levels; E80.6 Other disorders of bilirubin metabolism; D72.819 Decreased white blood cell count, unspecified; E46 Unspecified protein-calorie malnutrition; M81.0 Age-related osteoporosis without current pathological fracture; J44.9 Chronic obstructive pulmonary disease, unspecified; K72.90 Hepatic failure, unspecified without coma; F32.9 Major depressive disorder, single episode, unspecified; F17.210 Nicotine dependence, cigarettes, uncomplicated; M25.512 Pain in left shoulder; M25.511 Pain in right shoulder; K70.30 Alcoholic cirrhosis of liver without ascites; G93.2 Benign intracranial hypertension; F10.229 Alcohol dependence with intoxication, unspecified; N39.0 Urinary tract infection, site not specified; B95.8 Unspecified staphylococcus as the cause of diseases classified elsewhere; Z20.828 Contact with and (suspected) exposure to other viral communicable diseases

== ENCOUNTER 2020-10-12 15:04 | Emergency (ER) | payer OTHER ==
[~2020-10-12] VITALS: Ht 170.1 cm; Wt 49.4 kg
[~2020-10-12 15:04] MED LIST changes: +CIPRO500 MG PO
[2020-10-12 15:51] LABS: BASO # 0.1 10*3/uL (0.0-0.1); BASO % 2.8 % (0.0-1.0); EOS % 1.1 % (1.0-4.0); HEMATOCRIT 34.2 % (37.0-47.0); LYMPH # 1.6 10*3/uL (1.3-4.4); MEAN CELL VOLUME 94.5 fl (81.0-99.0); MEAN CORPUSCULAR HGB CONC 30.7 g/dl (33.0-37.0); MEAN PLATELET VOLUME 10.2 fl (9.6-12.3); MONO # 0.3 10*3/uL (0.1-1.0); MONO % 7.1 % (3.0-9.0); NEUT # 1.5 10*3/uL (2.3-7.9); NEUT % 43.7 % (47.0-73.0); PLATELET COUNT AUTOMATED 205 10*3/uL (130-400); RED BLOOD COUNT 3.62 10*6/uL (4.10-5.10); RED CELL DISTRI WIDTH 16.9 % (0-14.5); WHITE BLOOD COUNT 3.5 10*3/uL (4.8-10.8)
[2020-10-12 16:03] LABS: ACT PARTIAL THROMBO TIME 24.5 SECONDS (20.0-32.1); INTERNATIONAL NORM RATIO 1.2 (2.0-3.5)
[2020-10-12 16:14] LABS: ALBUMIN 2.8 gm/dl (3.1-4.5); ALKALINE PHOSPHATASE 230 U/L (45-117); BUN 6 mg/dl (7-24); CHLORIDE 114 mmol/L (98-107); CREATININE 0.55 mg/dL (0.55-1.02); LIPASE 176 U/L (73-393); POTASSIUM 3.9 mmol/L (3.5-5.1); SGOT/AST 69 IU/L (3-35); SGPT/ALT 34 U/L (12-78); SODIUM 145 mmol/L (136-145); TOTAL PROTEIN 7.4 gm/dL (6.4-8.2)
[2020-10-12 16:16] LABS: TROPONIN I < 0.015 ng/ml (<0.045)
[2020-10-12 16:35] LABS: BILIRUBIN Negative (Negative); BLOOD Negative (Negative); CLARITY Clear (Clear); COLOR Yellow (Yellow); GLUCOSE Negative (Negative); KETONE Negative (Negative); LEUKO ESTERASE Trace (Negative); NITRITE Negative (Negative); PH 6.5 (4.5-8.0); SPECIFIC GRAVITY <= 1.005 (1.001-1.030); UROBILINOGEN 0.2 E.U./dl (0.0-1.0)
[2020-10-12 16:46] LABS: BACTERIA 2+; EPITHELIAL CELLS 16-20; YEAST 2+
== END 2020-10-13 12:22 | disposition home or self-care (01) ==
LOC: ED 15:04
PROVIDERS: Emergency Medicine
DX: F10.129 Alcohol abuse with intoxication, unspecified (principal); M54.9 Dorsalgia, unspecified; G89.29 Other chronic pain; F17.200 Nicotine dependence, unspecified, uncomplicated; Z79.899 Other long term (current) drug therapy; Z98.890 Other specified postprocedural states; Y90.7 Blood alcohol level of 200-239 mg/100 ml

== ENCOUNTER 2020-11-12 13:28 | Emergency (ER) | payer OTHER ==
[~2020-11-12] VITALS: Wt 56.7 kg
[2020-11-12 14:13] LABS: BASO % 1.1 % (0.0-1.0); HEMATOCRIT 32.2 % (37.0-47.0); LYMPH # 1.7 10*3/uL (1.3-4.4); LYMPH % 47.2 % (27.0-41.0); MEAN CORPUSCULAR HGB 27.1 pg (27.0-31.0); MEAN CORPUSCULAR HGB CONC 29.8 g/dl (33.0-37.0); MEAN PLATELET VOLUME 9.4 fl (9.6-12.3); MONO # 0.3 10*3/uL (0.1-1.0); MONO % 9.1 % (3.0-9.0); NEUT # 1.4 10*3/uL (2.3-7.9); NEUT % 40.6 % (47.0-73.0); PLATELET COUNT AUTOMATED 274 10*3/uL (130-400); RED BLOOD COUNT 3.54 10*6/uL (4.10-5.10); RED CELL DISTRI WIDTH 17.6 % (0-14.5); WHITE BLOOD COUNT 3.5 10*3/uL (4.8-10.8)
[2020-11-12 14:21] LABS: ACT PARTIAL THROMBO TIME 27.9 SECONDS (20.0-32.1); INTERNATIONAL NORM RATIO 1.1 (2.0-3.5)
[2020-11-12 14:26] LABS: ALBUMIN 3.1 gm/dl (3.1-4.5); ALKALINE PHOSPHATASE 194 U/L (45-117); BUN 16 mg/dl (7-24); CHLORIDE 99 mmol/L (98-107); CREATININE 0.89 mg/dL (0.55-1.02); POTASSIUM 3.4 mmol/L (3.5-5.1); SGOT/AST 40 IU/L (3-35); SGPT/ALT 24 U/L (12-78); SODIUM 133 mmol/L (136-145)
== END 2020-11-12 15:42 | disposition home or self-care (01) ==
LOC: ED 13:28
PROVIDERS: Family Medicine
DX: S00.91XA Abrasion of unspecified part of head, initial encounter (principal); F10.129 Alcohol abuse with intoxication, unspecified; Z79.899 Other long term (current) drug therapy; Z98.890 Other specified postprocedural states; X58.XXXA Exposure to other specified factors, initial encounter; Y93.89 Activity, other specified; Y92.89 Other specified places as the place of occurrence of the external cause; Y90.8 Blood alcohol level of 240 mg/100 ml or more

== ENCOUNTER 2020-12-02 02:56 | Inpatient (IN) | payer OTHER ==
[~2020-12-02] VITALS: Ht 170.1 cm; Wt 58.1 kg
[2020-12-02] VITALS (7 sets, daily range): BP systolic 121–140; BP diastolic 67–94
[2020-12-02 03:27] LABS: BASO # 0.1 10*3/uL (0.0-0.1); BASO % 1.3 % (0.0-1.0); EOS % 0.2 % (1.0-4.0); HEMATOCRIT 34.3 % (37.0-47.0); LYMPH # 1.4 10*3/uL (1.3-4.4); LYMPH % 23.1 % (27.0-41.0); MEAN CELL VOLUME 86.4 fl (81.0-99.0); MEAN CORPUSCULAR HGB 26.7 pg (27.0-31.0); MEAN CORPUSCULAR HGB CONC 30.9 g/dl (33.0-37.0); MEAN PLATELET VOLUME 10.4 fl (9.6-12.3); MONO # 0.4 10*3/uL (0.1-1.0); MONO % 6.5 % (3.0-9.0); NEUT # 4.3 10*3/uL (2.3-7.9); NEUT % 68.6 % (47.0-73.0); PLATELET COUNT AUTOMATED 62 10*3/uL (130-400); RED BLOOD COUNT 3.97 10*6/uL (4.10-5.10); RED CELL DISTRI WIDTH 18.2 % (0-14.5); WHITE BLOOD COUNT 6.2 10*3/uL (4.8-10.8)
[2020-12-02 03:44] LABS: BUN 12 mg/dl (7-24); CHLORIDE 111 mmol/L (98-107); CREATININE 0.64 mg/dL (0.55-1.02); POTASSIUM 3.8 mmol/L (3.5-5.1); SGOT/AST 249 IU/L (3-35); SGPT/ALT 74 U/L (12-78); SODIUM 143 mmol/L (136-145); TOTAL PROTEIN 6.9 gm/dL (6.4-8.2)
[2020-12-02 03:47] LABS: ALKALINE PHOSPHATASE 314 U/L (45-117)
[2020-12-02 03:52] LABS: TROPONIN I < 0.015 ng/ml (<0.045)
[2020-12-02] MEDS ORDERED: LACTULOSE10 GM/151 PO (20:51)
[2020-12-02 21:09] LABS: BILIRUBIN 1+ (Negative); BLOOD Negative (Negative); CLARITY Clear (Clear); COLOR Dark Yellow (Yellow); GLUCOSE Negative (Negative); KETONE Trace (Negative); LEUKO ESTERASE 2+ (Negative); NITRITE Negative (Negative)
[2020-12-02 21:18] LABS: URINE AMPHETAMINES < 1000 (1000ng/ml); URINE BARBITURATES < 200 (200ng/ml); URINE BENZODIAZEPINES < 200 (200ng/ml); URINE CANNABINOIDS (THC) < 50 (50ng/ml); URINE COCAINE < 300 (300ng/ml); URINE METHADONE < 300 (300ng/ml); URINE OPIATES > 300 (300ng/ml)
[2020-12-02 21:28] LABS: BACTERIA 3+
[2020-12-02 21:29] LABS: RBC 0-2 rbc/hpf (0-2)
[2020-12-02 21:30] LABS: URINE PHENCYCLIDINE < 25 (25ng/ml)
[2020-12-03] VITALS: BP 146/107
[2020-12-03 08:00] VITALS: BP 151/85
== END 2020-12-03 11:49 | disposition home or self-care (01) | DRG 775 ==
LOC: ED 02:56 → 5E 06:53 → EDHOLD 06:53 → 5E 09:13
PROVIDERS: Emergency Medicine; ADMIT Internal Medicine; ATTEND Internal Medicine
DX: F10.229 Alcohol dependence with intoxication, unspecified (principal); K70.9 Alcoholic liver disease, unspecified; G89.29 Other chronic pain; D69.6 Thrombocytopenia, unspecified; R00.0 Tachycardia, unspecified; M19.90 Unspecified osteoarthritis, unspecified site; E46 Unspecified protein-calorie malnutrition; F17.210 Nicotine dependence, cigarettes, uncomplicated; Y90.9 Presence of alcohol in blood, level not specified; R74.01 Elevation of levels of liver transaminase levels; Z68.20 Body mass index [BMI] 20.0-20.9, adult; Z82.49 Family history of ischemic heart disease and other diseases of the circulatory system; Z82.3 Family history of stroke

== ENCOUNTER → 2021-03-08 | Outpatient (CLI) | payer OTHER ==
[~2021-03-08] MED LIST changes: +LACTULOSE10 GM/151 PO
== END | disposition home or self-care (01) ==
LOC: US 10:22
PROVIDERS: ATTEND Internal Medicine
DX: K74.60 Unspecified cirrhosis of liver (principal)

== ENCOUNTER 2021-04-17 19:09 | Emergency (ER) | payer OTHER ==
[~2021-04-17] VITALS: Ht 170.1 cm; Wt 58.5 kg
== END 2021-04-18 09:55 | disposition home or self-care (01) ==
LOC: ED 19:09
DX: S92.592A Other fracture of left lesser toe(s), initial encounter for closed fracture (principal); S00.83XA Contusion of other part of head, initial encounter; F10.129 Alcohol abuse with intoxication, unspecified; Z90.89 Acquired absence of other organs; Z79.899 Other long term (current) drug therapy; W01.198A Fall on same level from slipping, tripping and stumbling with subsequent striking against other object, initial encounter; Y93.89 Activity, other specified; Y92.89 Other specified places as the place of occurrence of the external cause; Y99.9 Unspecified external cause status; Y90.9 Presence of alcohol in blood, level not specified

== ENCOUNTER 2021-09-12 18:00 | Emergency (ER) | payer OTHER ==
[~2021-09-12] VITALS: Ht 167 cm; Wt 55.8 kg
[2021-09-12] MEDS ORDERED: OMEPRAZOLE40 MG PO (18:12)
[2021-09-12] MEDS ORDERED: GOOD SENSE ASP325 MG PO (18:13)
== END 2021-09-12 22:03 | disposition home or self-care (01) ==
LOC: ED 18:00
DX: S42.202G Unspecified fracture of upper end of left humerus, subsequent encounter for fracture with delayed healing (principal); Z76.0 Encounter for issue of repeat prescription; Z79.899 Other long term (current) drug therapy; Z79.82 Long term (current) use of aspirin; Z90.89 Acquired absence of other organs; Z87.891 Personal history of nicotine dependence; X58.XXXD Exposure to other specified factors, subsequent encounter

== ENCOUNTER 2021-09-18 22:12 | Emergency (ER) | payer OTHER ==
[~2021-09-18] VITALS: Wt 59.0 kg
[~2021-09-18 22:12] MED LIST changes: +GOOD SENSE ASP325 MG PO; +OMEPRAZOLE40 MG PO
== END 2021-09-19 05:04 | disposition home or self-care (01) ==
LOC: ED 22:12
DX: S16.1XXA Strain of muscle, fascia and tendon at neck level, initial encounter (principal); S30.0XXA Contusion of lower back and pelvis, initial encounter; S20.213A Contusion of bilateral front wall of thorax, initial encounter; K21.9 Gastro-esophageal reflux disease without esophagitis; J44.9 Chronic obstructive pulmonary disease, unspecified; I10 Essential (primary) hypertension; Z79.899 Other long term (current) drug therapy; Z79.82 Long term (current) use of aspirin; Z90.89 Acquired absence of other organs; Z87.891 Personal history of nicotine dependence; W18.39XA Other fall on same level, initial encounter; Y93.89 Activity, other specified; Y92.89 Other specified places as the place of occurrence of the external cause; Y99.8 Other external cause status

== ENCOUNTER → 2021-10-20 | Outpatient (CLI) | payer OTHER ==
[2021-10-20 17:08] LABS: BASO # 0.1 10*3/uL (0.0-0.1); BASO % 1.6 % (0.0-1.0); EOS # 0.1 10*3/uL (0.0-0.4); EOS % 1.6 % (1.0-4.0); HEMATOCRIT 29.1 % (37.0-47.0); LYMPH # 1.4 10*3/uL (1.3-4.4); LYMPH % 39.1 % (27.0-41.0); MEAN CORPUSCULAR HGB 28.1 pg (27.0-31.0); MEAN CORPUSCULAR HGB CONC 30.2 g/dl (33.0-37.0); MEAN PLATELET VOLUME 9.5 fl (9.6-12.3); MONO # 0.4 10*3/uL (0.1-1.0); MONO % 10.3 % (3.0-9.0); NEUT # 1.7 10*3/uL (2.3-7.9); NEUT % 47.4 % (47.0-73.0); PLATELET COUNT AUTOMATED 228 10*3/uL (130-400); RED BLOOD COUNT 3.13 10*6/uL (4.10-5.10); RED CELL DISTRI WIDTH 23.6 % (0-14.5); WHITE BLOOD COUNT 3.7 10*3/uL (4.8-10.8)
[2021-10-20 17:26] LABS: ALKALINE PHOSPHATASE 201 U/L (45-117); BUN 9 mg/dl (7-24); CREATININE 0.74 mg/dL (0.55-1.02); SGOT/AST 75 IU/L (3-35); SGPT/ALT 33 U/L (12-78); TOTAL PROTEIN 7.6 gm/dL (6.4-8.2)
[2021-10-20 17:41] LABS: CHLORIDE 100 mmol/L (98-107); POTASSIUM 3.3 mmol/L (3.5-5.1); SODIUM 135 mmol/L (136-145)
== END | disposition home or self-care (01) ==
LOC: LAB 16:16
PROVIDERS: Family Medicine; ATTEND Family Medicine
DX: J44.9 Chronic obstructive pulmonary disease, unspecified (principal); R60.0 Localized edema; F10.20 Alcohol dependence, uncomplicated

== ENCOUNTER 2021-10-23 23:04 | Emergency (ER) | payer OTHER ==
[~2021-10-23] VITALS: Wt 69.9 kg
[2021-10-23 23:23] LABS: HEMATOCRIT 27.2 % (37.0-47.0); MANUAL DIFF REFLEX YES; MEAN CELL VOLUME 92.8 fl (81.0-99.0); MEAN CORPUSCULAR HGB 28.3 pg (27.0-31.0); MEAN CORPUSCULAR HGB CONC 30.5 g/dl (33.0-37.0); MEAN PLATELET VOLUME 9.2 fl (9.6-12.3); PLATELET COUNT AUTOMATED 206 10*3/uL (130-400); RED BLOOD COUNT 2.93 10*6/uL (4.10-5.10); RED CELL DISTRI WIDTH 23.2 % (0-14.5); WHITE BLOOD COUNT 3.2 10*3/uL (4.8-10.8)
[2021-10-23 23:38] LABS: ALKALINE PHOSPHATASE 147 U/L (45-117); BUN 7 mg/dl (7-24); CHLORIDE 103 mmol/L (98-107); CREATININE 0.69 mg/dL (0.55-1.02); POTASSIUM 3.8 mmol/L (3.5-5.1); SGOT/AST 66 IU/L (3-35); SGPT/ALT 31 U/L (12-78); SODIUM 142 mmol/L (136-145)
[2021-10-23 23:44] LABS: ATYPICAL LYMPHS 1 % (0-0); BASOPHILS 4 % (0-1); PLATELET SUFFICIENCY NORMAL (NORMAL); TOTAL CELLS COUNTED 100 #CELLS
[2021-10-23 23:45] LABS: OVALOCYTES FEW
[2021-10-24 10:30] LABS: ACT PARTIAL THROMBO TIME 26.5 SECONDS (20.0-32.1); INTERNATIONAL NORM RATIO 1.3 (2.0-3.5)
== END 2021-10-24 16:04 | disposition short-term general hospital (02) ==
LOC: ED 23:04
PROVIDERS: Emergency Medicine; Internal Medicine
DX: T81.49XA Infection following a procedure, other surgical site, initial encounter (principal); L03.115 Cellulitis of right lower limb; I82.411 Acute embolism and thrombosis of right femoral vein; F10.929 Alcohol use, unspecified with intoxication, unspecified; F17.210 Nicotine dependence, cigarettes, uncomplicated; Z79.899 Other long term (current) drug therapy; Z79.82 Long term (current) use of aspirin; Y92.89 Other specified places as the place of occurrence of the external cause

== ENCOUNTER 2021-11-11 10:12 | Emergency (ER) | payer OTHER ==
[~2021-11-11] VITALS: Wt 60.3 kg
[2021-11-11] MEDS ORDERED: HYDROCODONE-AC1 EAC1 PO (11:51)
== END 2021-11-11 12:22 | disposition home or self-care (01) ==
LOC: ED 10:12
DX: S50.11XA Contusion of right forearm, initial encounter (principal); Z79.899 Other long term (current) drug therapy; Z79.82 Long term (current) use of aspirin; Z87.891 Personal history of nicotine dependence; X58.XXXA Exposure to other specified factors, initial encounter; Y93.89 Activity, other specified; Y92.89 Other specified places as the place of occurrence of the external cause; Y99.8 Other external cause status

== ENCOUNTER 2021-11-15 13:13 | Emergency (ER) | payer OTHER ==
[~2021-11-15] VITALS: Wt 58.5 kg
[~2021-11-15 13:13] MED LIST changes: +HYDROCODONE-AC1 EAC1 PO
== END 2021-11-15 16:18 | disposition home or self-care (01) ==
LOC: ED 13:13
DX: S60.211A Contusion of right wrist, initial encounter (principal); Z79.899 Other long term (current) drug therapy; Z79.82 Long term (current) use of aspirin; Z90.89 Acquired absence of other organs; Z98.890 Other specified postprocedural states; Z87.891 Personal history of nicotine dependence; X58.XXXA Exposure to other specified factors, initial encounter; Y93.89 Activity, other specified; Y92.89 Other specified places as the place of occurrence of the external cause; Y99.8 Other external cause status

== ENCOUNTER 2021-11-24 20:38 | Emergency (ER) | payer OTHER ==
[~2021-11-24] VITALS: Ht 162.5 cm; Wt 64.4 kg
[2021-11-24 23:41] LABS: HEMATOCRIT 27.9 % (37.0-47.0); MEAN CELL VOLUME 86.9 fl (81.0-99.0); MEAN CORPUSCULAR HGB 27.1 pg (27.0-31.0); MEAN CORPUSCULAR HGB CONC 31.2 g/dl (33.0-37.0); MEAN PLATELET VOLUME 9.9 fl (9.6-12.3); PLATELET COUNT AUTOMATED 97 10*3/uL (130-400); RED BLOOD COUNT 3.21 10*6/uL (4.10-5.10); WHITE BLOOD COUNT 3.1 10*3/uL (4.8-10.8)
[2021-11-24 23:42] LABS: MANUAL DIFF REFLEX YES
[2021-11-24 23:51] LABS: INTERNATIONAL NORM RATIO 1.6 (2.0-3.5)
[2021-11-24 23:56] LABS: ALKALINE PHOSPHATASE 120 U/L (45-117); BUN 4 mg/dl (7-24); CHLORIDE 115 mmol/L (98-107); POTASSIUM 3.4 mmol/L (3.5-5.1); SGOT/AST 66 IU/L (3-35); SGPT/ALT 28 U/L (12-78); SODIUM 147 mmol/L (136-145); TOTAL PROTEIN 6.5 gm/dL (6.4-8.2)
[2021-11-25 00:02] LABS: BASOPHILS 1 % (0-1); MICROCYTOSIS SLIGHT; PLATELET SUFFICIENCY LOW (NORMAL); TOTAL CELLS COUNTED 100 #CELLS
== END 2021-11-25 19:09 | disposition home or self-care (01) ==
LOC: ED 20:38
PROVIDERS: Emergency Medicine
DX: F10.129 Alcohol abuse with intoxication, unspecified (principal); J44.9 Chronic obstructive pulmonary disease, unspecified; K21.9 Gastro-esophageal reflux disease without esophagitis; I10 Essential (primary) hypertension; F17.210 Nicotine dependence, cigarettes, uncomplicated; Z79.82 Long term (current) use of aspirin; Y90.9 Presence of alcohol in blood, level not specified

== ENCOUNTER 2021-12-01 15:20 | Emergency (ER) | payer OTHER ==
[~2021-12-01] VITALS: Ht 157.4 cm; Wt 68.0 kg
[2021-12-01 15:42] LABS: BASO % 1.1 % (0.0-1.0); HEMATOCRIT 32.2 % (37.0-47.0); LYMPH # 1.4 10*3/uL (1.3-4.4); LYMPH % 48.9 % (27.0-41.0); MEAN CELL VOLUME 87.7 fl (81.0-99.0); MEAN CORPUSCULAR HGB 26.7 pg (27.0-31.0); MEAN CORPUSCULAR HGB CONC 30.4 g/dl (33.0-37.0); MEAN PLATELET VOLUME 10.2 fl (9.6-12.3); MONO # 0.2 10*3/uL (0.1-1.0); MONO % 6.7 % (3.0-9.0); NEUT # 1.2 10*3/uL (2.3-7.9); NEUT % 43.3 % (47.0-73.0); PLATELET COUNT AUTOMATED 114 10*3/uL (130-400); RED BLOOD COUNT 3.67 10*6/uL (4.10-5.10); RED CELL DISTRI WIDTH 21.3 % (0-14.5); WHITE BLOOD COUNT 2.8 10*3/uL (4.8-10.8)
[2021-12-01 15:53] LABS: ACT PARTIAL THROMBO TIME 29.6 SECONDS (20.0-32.1); INTERNATIONAL NORM RATIO 1.3 (2.0-3.5)
[2021-12-01 16:10] LABS: ALKALINE PHOSPHATASE 168 U/L (45-117); BUN 9 mg/dl (7-24); CHLORIDE 118 mmol/L (98-107); CREATININE 0.66 mg/dL (0.55-1.02); LIPASE 282 U/L (73-393); POTASSIUM 3.7 mmol/L (3.5-5.1); SGOT/AST 63 IU/L (3-35); SGPT/ALT 30 U/L (12-78); SODIUM 147 mmol/L (136-145); TOTAL PROTEIN 7.3 gm/dL (6.4-8.2)
== END 2021-12-02 16:43 | disposition home or self-care (01) ==
LOC: ED 15:20
PROVIDERS: Emergency Medicine
DX: F10.129 Alcohol abuse with intoxication, unspecified (principal); F17.210 Nicotine dependence, cigarettes, uncomplicated; Z79.82 Long term (current) use of aspirin; Z79.899 Other long term (current) drug therapy; Y90.9 Presence of alcohol in blood, level not specified

== ENCOUNTER 2022-01-13 23:59 | Emergency (ER) | payer OTHER ==
[~2022-01-13] VITALS: Ht 170.1 cm; Wt 57.8 kg
== END 2022-01-14 04:03 | disposition home or self-care (01) ==
LOC: ED 23:59
DX: S00.93XA Contusion of unspecified part of head, initial encounter (principal); Z79.899 Other long term (current) drug therapy; Z79.82 Long term (current) use of aspirin; F17.200 Nicotine dependence, unspecified, uncomplicated; Z90.89 Acquired absence of other organs; W18.39XA Other fall on same level, initial encounter; Y93.89 Activity, other specified; Y92.89 Other specified places as the place of occurrence of the external cause; Y99.8 Other external cause status